=== PATIENT | female | born 1965 | race Caucasian/White ===

== ENCOUNTER 2018-01-30 11:09 | Day surgery (SDC) | payer MEDICARE, MEDICAID ==
[~2018-01-30] VITALS: Ht 157.5 cm; Wt 52.1 kg
[~2018-01-30 11:09] MED LIST: ALBU18HF2 INH; AMLO10TA PO; BENA40TA73 PO; CALC500T11 PO; CALC667T5 PO; CLON0.2T PO; CLON0.5T23 PO; FOLI0.8T19 PO; FURO80TA87 PO; HYDR-3965 PO; LABE300T2 PO; NIT5P TD; NITR0.4T51 SL; ONDA8TAB6 PO; SEVE800T8 PO
[2018-01-30] MEDS ORDERED: normal saline 1000ml 1,000 ML IV SCH (11:30)
[2018-01-30 11:33] VITALS: BP 147/91
[2018-01-30 12:54] LABS: BASOPHILS % (AUTO) 0.5 % (0-1); EOSINOPHILS # (AUTO) 0.3 X10'3 (0-0.9); EOSINOPHILS % (AUTO) 5.9 % (0-6); HEMATOCRIT 35.7 % (35.0-45.0); HEMOGLOBIN 11.8 g/dl (12.0-16.0); LYMPHOCYTES # (AUTO) 0.7 X10'3 (1.1-4.8); LYMPHOCYTES % (AUTO) 13.4 % (21-51); MEAN CORPUSCULAR HEMOGLOBIN 30.5 PG (27.0-31.0); MEAN CORPUSCULAR HGB CONC 33.1 % (33.0-36.5); MEAN CORPUSCULAR VOLUME 92.1 FL (78-98); MEAN PLATELET VOLUME 7.4 FL (7.4-10.4); MONOCYTES # (AUTO) 0.3 X10'3 (0-0.9); MONOCYTES % (AUTO) 6.2 % (2-12); NEUTROPHILS # (AUTO) 3.7 X10'3 (1.8-7.7); PLATELET COUNT 150 X10'3 (140-440); RED BLOOD COUNT 3.88 X10'6 (4.20-5.60); RED CELL DISTRIBUTION WIDTH 13.9 % (11.5-14.5)
[2018-01-30 13:05] LABS: ALBUMIN 3.5 G/DL (3.4-5.0); ANION GAP 14 (8-16); BLOOD UREA NITROGEN 53 MG/DL (7-18); BUN/CREATININE RATIO 4.6 (6.6-38.0); CALCIUM 8.7 MG/DL (8.5-10.1); CHLORIDE 95 MMOL/L (99-107); CREATININE 11.54 MG/DL (0.40-0.90); GLUCOSE 89 MG/DL (70-104); POTASSIUM 5.8 MMOL/L (3.5-5.1); SODIUM 136 MMOL/L (135-145); TOTAL CARBON DIOXIDE 27.2 MMOL/L (24-32); eGFR 3 ML/MIN
[2018-01-30] MEDS ORDERED: LIDOcaine 1%/PF 5ML 10 MG/ML VIAL SQ ONE (13:05)
[2018-01-30] MEDS ORDERED: midazolam 2 mg/2 ml injection IV PRN (13:05)
[2018-01-30] MEDS ORDERED: fentaNYL/PF 50MCG/1 ML 2ML syringe IV PRN (13:05)
[2018-01-30] MEDS ORDERED: LIDOcaine 1%/PF 5ML 10 MG/ML VIAL ONE (13:15)
[2018-01-30] MEDS ORDERED: iohexol 300mg/ml 100ml inj. ONE (13:15)
[2018-01-30] MEDS ORDERED: midazolam 2 mg/2 ml injection ONE ×2 (13:16→14:24)
[2018-01-30] MEDS ORDERED: fentaNYL/PF 50MCG/1 ML 2ML syringe ONE ×3 (13:16→14:24)
[2018-01-30] MEDS ORDERED: heparin 1,000 UNITS/NS 500ml 500 ML ONE (13:17)
[2018-01-30] MEDS ORDERED: tPA-cathflo 2 MG/2 ml IV flush ONE (13:17)
[2018-01-30] MEDS ORDERED: tPA-cathflo 2 MG/2 ml IV flush IVF ONE (13:30)
[2018-01-30] MEDS ORDERED: LIDOcaine 1% (10mg/ml) 2ml vial ONE (14:40)
[2018-01-30] MEDS ORDERED: heparin 1,000unit/ml 10ml vial 10 ML ONE (14:50)
[2018-01-30 15:50] VITALS: BP 135/92
[2018-01-30 16:00] VITALS: BP 131/59
[2018-01-30 16:17] VITALS: BP 169/85
== END 2018-01-30 16:35 | disposition home or self-care (01) ==
LOC: SSTAY O 11:09
PROVIDERS: ATTEND Radiology Diagnostic Radiology
DX: T82.858A Stenosis of other vascular prosthetic devices, implants and grafts, initial encounter (principal); Y83.2 Surgical operation with anastomosis, bypass or graft as the cause of abnormal reaction of the patient, or of later complication, without mention of misadventure at the time of the procedure; Y92.89 Other specified places as the place of occurrence of the external cause; I13.2 Hypertensive heart and chronic kidney disease with heart failure and with stage 5 chronic kidney disease, or end stage renal disease; I50.9 Heart failure, unspecified; N18.6 End stage renal disease; J45.998 Other asthma; F19.21 Other psychoactive substance dependence, in remission; M19.90 Unspecified osteoarthritis, unspecified site; F32.9 Major depressive disorder, single episode, unspecified; Z99.81 Dependence on supplemental oxygen; Z72.89 Other problems related to lifestyle; Z90.5 Acquired absence of kidney; Z85.41 Personal history of malignant neoplasm of cervix uteri; Z86.69 Personal history of other diseases of the nervous system and sense organs; Z86.74 Personal history of sudden cardiac arrest; Z95.828 Presence of other vascular implants and grafts; Z87.891 Personal history of nicotine dependence; Z99.2 Dependence on renal dialysis; Z88.0 Allergy status to penicillin; Z98.890 Other specified postprocedural states; Z79.899 Other long term (current) drug therapy; Z83.6 Family history of other diseases of the respiratory system; Z82.0 Family history of epilepsy and other diseases of the nervous system; Z82.3 Family history of stroke; Z80.9 Family history of malignant neoplasm, unspecified
CPT/HCPCS: 36415; 36558; 36905; 76937; 77001; 80048; 85025; 99152; 99153; A9270; C1725; C1750; C1757; C1769; C1894; J1644; J2001; J2250; J2997; J3010; J3490; J7030; Q9967; A4620

== ENCOUNTER 2018-01-30 17:20 | Emergency (ER) | payer MEDICARE, MEDICAID ==
[~2018-01-30] VITALS: Ht 157.5 cm; Wt 52.0 kg
[2018-01-30 19:40] LABS: BASOPHILS % (AUTO) 0.3 % (0-1); EOSINOPHILS # (AUTO) 0.3 X10'3 (0-0.9); EOSINOPHILS % (AUTO) 5.6 % (0-6); HEMATOCRIT 35.3 % (35.0-45.0); HEMOGLOBIN 11.7 g/dl (12.0-16.0); LYMPHOCYTES # (AUTO) 0.8 X10'3 (1.1-4.8); LYMPHOCYTES % (AUTO) 13.1 % (21-51); MEAN CORPUSCULAR HEMOGLOBIN 30.5 PG (27.0-31.0); MEAN CORPUSCULAR HGB CONC 33.2 % (33.0-36.5); MEAN CORPUSCULAR VOLUME 91.9 FL (78-98); MEAN PLATELET VOLUME 7.8 FL (7.4-10.4); MONOCYTES # (AUTO) 0.4 X10'3 (0-0.9); MONOCYTES % (AUTO) 6.6 % (2-12); NEUTROPHILS # (AUTO) 4.5 X10'3 (1.8-7.7); NEUTROPHILS % (AUTO) 74.4 % (42-75); PLATELET COUNT 141 X10'3 (140-440); RED BLOOD COUNT 3.84 X10'6 (4.20-5.60); RED CELL DISTRIBUTION WIDTH 14.1 % (11.5-14.5)
[2018-01-30 19:47] VITALS: BP 179/64
[2018-01-30 19:52] LABS: PARTIAL THROMBOPLASTIN TIME 31 SECONDS (22-32); PROTHROMBIN TIME 10.2 SECONDS (9.0-12.0)
[2018-01-30 19:53] LABS: ALANINE AMINOTRANSFERASE 23 U/L (12-78); ALBUMIN 3.8 G/DL (3.4-5.0); ALBUMIN/GLOBULIN RATIO 1.1 (1.1-1.5); ALKALINE PHOSPHATASE 141 IU/L (46-116); ANION GAP 16 (8-16); ASPARTATE AMINO TRANSFERASE 22 U/L (10-37); BILIRUBIN,TOTAL 0.8 MG/DL (0.1-1.0); BLOOD UREA NITROGEN 56 MG/DL (7-18); BUN/CREATININE RATIO 4.6 (6.6-38.0); CALCIUM 8.9 MG/DL (8.5-10.1); CHLORIDE 94 MMOL/L (99-107); CREATININE 12.22 MG/DL (0.40-0.90); GLUCOSE 86 MG/DL (70-104); POTASSIUM 5.3 MMOL/L (3.5-5.1); SODIUM 135 MMOL/L (135-145); TOTAL CARBON DIOXIDE 24.6 MMOL/L (24-32); TOTAL PROTEIN 7.3 G/DL (6.4-8.2); eGFR 3 ML/MIN
== END 2018-01-30 20:31 | disposition home or self-care (01) ==
LOC: ER 17:21
DX: T82.838A Hemorrhage due to vascular prosthetic devices, implants and grafts, initial encounter (principal); I25.2 Old myocardial infarction; I50.9 Heart failure, unspecified; E11.9 Type 2 diabetes mellitus without complications; Z88.0 Allergy status to penicillin; Z79.899 Other long term (current) drug therapy; Z87.891 Personal history of nicotine dependence
CPT/HCPCS: 36415; 71045; 80053; 85025; 85610; 85730; 86870; 86885; 86900; 86901; 86902; 86905; 99285

== ENCOUNTER 2018-03-30 08:45 | Inpatient (IN) | payer MEDICARE, MEDICAID ==
[~2018-03-30] VITALS: Ht 157.5 cm; Wt 51.4 kg
[2018-03-30] VITALS (13 sets, daily range): BP systolic 134–199; BP diastolic 59–91
[~2018-03-30 08:45] MED LIST changes: -BENA40TA73 PO; -CALC500T11 PO; -HYDR-3965 PO; -NIT5P TD; -NITR0.4T51 SL; -ONDA8TAB6 PO; -SEVE800T8 PO
--- NOTE | 2018-03-30 10:24 | NUR ---
received this patient from [facility] via ambulance, patients systolic 140 on 65 mcg of nitro. patient states she is without pain
[2018-03-30] MEDS ORDERED: ondansetron/PF 4mg/2ml inj IV PRN (10:30)
[2018-03-30] MEDS ORDERED: acetaminophen 325mg tablet PO PRN ×2 (10:30)
[2018-03-30] MEDS ORDERED: epoetin 20,000 units/ml inj IV ONE (10:35)
[2018-03-30] MEDS ORDERED: normal saline 1000ml 250 ML IV PRN (10:35)
[2018-03-30] MEDS ORDERED: heparin 1,000unit/ml 10ml vial 10 ML IV ONE (10:35)
[2018-03-30] MEDS ORDERED: LIDOcaine 1% (10mg/ml) 2ml vial SQ ONE (10:35)
[2018-03-30] MEDS ORDERED: albuterol 2.5 MG/3 ML nebule NEB PRN (11:20)
[2018-03-30 12:38] LABS: BASOPHILS % (AUTO) 0.3 % (0-1); EOSINOPHILS # (AUTO) 0.1 X10'3 (0-0.9); EOSINOPHILS % (AUTO) 1.7 % (0-6); HEMATOCRIT 24.9 % (35.0-45.0); LYMPHOCYTES # (AUTO) 0.3 X10'3 (1.1-4.8); LYMPHOCYTES % (AUTO) 7.3 % (21-51); MEAN CORPUSCULAR HEMOGLOBIN 30.4 PG (27.0-31.0); MEAN CORPUSCULAR HGB CONC 32.1 % (33.0-36.5); MEAN CORPUSCULAR VOLUME 94.8 FL (78-98); MEAN PLATELET VOLUME 8.8 FL (7.4-10.4); MONOCYTES # (AUTO) 0.4 X10'3 (0-0.9); MONOCYTES % (AUTO) 8.5 % (2-12); NEUTROPHILS # (AUTO) 3.9 X10'3 (1.8-7.7); NEUTROPHILS % (AUTO) 82.2 % (42-75); PLATELET COUNT 103 X10'3 (140-440); RED BLOOD COUNT 2.63 X10'6 (4.20-5.60); RED CELL DISTRIBUTION WIDTH 17.8 % (11.5-14.5); WHITE BLOOD COUNT 4.8 X10'3 (4.5-11.0)
[2018-03-30 12:52] LABS: ALANINE AMINOTRANSFERASE 12 U/L (12-78); ALBUMIN 2.7 G/DL (3.4-5.0); ALBUMIN/GLOBULIN RATIO 0.9 (1.1-1.5); ALKALINE PHOSPHATASE 84 IU/L (46-116); ANION GAP 14 (8-16); ASPARTATE AMINO TRANSFERASE 20 U/L (10-37); BILIRUBIN,TOTAL 0.6 MG/DL (0.1-1.0); BLOOD UREA NITROGEN 26 MG/DL (7-18); BUN/CREATININE RATIO 3.9 (6.6-38.0); CALCIUM 7.8 MG/DL (8.5-10.1); CHLORIDE 98 MMOL/L (99-107); CREATININE 6.64 MG/DL (0.40-0.90); GLUCOSE 96 MG/DL (70-104); SODIUM 137 MMOL/L (135-145); TOTAL CARBON DIOXIDE 25.2 MMOL/L (24-32); TOTAL PROTEIN 5.8 G/DL (6.4-8.2); eGFR 7 ML/MIN
[2018-03-30] MEDS ORDERED: clonazePAM 0.5mg tablet PO PRN (13:00)
[2018-03-30] MEDS: folic acid/vitamin B complex w/vitamin C 0.8mg tablet PO SCH (13:24)
[2018-03-30] MEDS: furosemide 40mg tablet PO SCH ×2 (13:29→20:44)
[2018-03-30] MEDS: labetalol 100mg tablet PO SCH ×2 (13:29→20:44)
[2018-03-30] MEDS ORDERED: nitroGLYCERIN-Tridil 50MG/D5W 250 ML IV PRN (17:05)
[2018-03-30] MEDS ORDERED: nitroGLYCERIN-Tridil 50MG/D5W 250 ML IV ONE (17:06)
[2018-03-30] MEDS: calcium acetate 667mg (PhosLO) capsule PO SCH ×2 (18:00→19:48)
[2018-03-30] MEDS: HYDROcodone/acetaminophen 5mg/325mg tablet PO PRN (18:08)
--- NOTE | 2018-03-30 18:25 | NUR ---
Patient in room CICU 2006. I have received report from Beata TAM and had the opportunity to ask questions and assume patient care.
--- NOTE | 2018-03-30 18:27 | NUR ---
Problems reprioritized. Patient report given, questions answered & plan of care reviewed with Sheridan TAM.
[2018-03-30] MEDS: cloNIDine 0.1 mg tablet PO SCH (19:48)
[2018-03-30] MEDS: famotidine 20mg tablet PO SCH (19:48)
[2018-03-30] MEDS: docusate sod 100mg capsule PO SCH (19:49)
[2018-03-30] MEDS: sennosides/docusate sodium tablet PO SCH (20:44)
--- NOTE | 2018-03-30 21:43 | NUR ---
Pt still hypertensive p/PM antihypertension meds and titrating nitro. Gabino notified, orders received.
[2018-03-30] MEDS: niCARDipine-NS 40mg/200ml IVPB 200 ML IV SCH (22:01)
--- NOTE | 2018-03-30 22:36 | NUR ---
Pt appears to be sleeping. Cardene started, titrating Nitro down as tolerated. Will continue to monitor.
[2018-03-31] VITALS (23 sets, daily range): BP systolic 133–175; BP diastolic 61–83
--- NOTE | 2018-03-31 03:57 | NUR ---
Pt appears to be sleeping, Nitro off, Cardene@5mg. BP@0358:142/70. Will continue to monitor.
[2018-03-31] MEDS: HYDROcodone/acetaminophen 5mg/325mg tablet PO PRN ×3 (04:30→22:04)
[2018-03-31] MEDS: niCARDipine-NS 40mg/200ml IVPB 200 ML IV SCH ×3 (04:31→18:59)
--- NOTE | 2018-03-31 06:27 | NUR ---
Problems reprioritized. Patient report given, questions answered & plan of care reviewed with Beata TAM.
[2018-03-31 06:47] LABS: BASOPHILS % (AUTO) 0.6 % (0-1); EOSINOPHILS # (AUTO) 0.1 X10'3 (0-0.9); EOSINOPHILS % (AUTO) 3.8 % (0-6); HEMATOCRIT 26.5 % (35.0-45.0); HEMOGLOBIN 8.5 g/dl (12.0-16.0); LYMPHOCYTES # (AUTO) 0.4 X10'3 (1.1-4.8); LYMPHOCYTES % (AUTO) 10.8 % (21-51); MEAN CORPUSCULAR HEMOGLOBIN 30.3 PG (27.0-31.0); MEAN CORPUSCULAR HGB CONC 31.9 % (33.0-36.5); MEAN PLATELET VOLUME 9.1 FL (7.4-10.4); MONOCYTES # (AUTO) 0.5 X10'3 (0-0.9); MONOCYTES % (AUTO) 12.4 % (2-12); NEUTROPHILS # (AUTO) 2.7 X10'3 (1.8-7.7); NEUTROPHILS % (AUTO) 72.4 % (42-75); PLATELET COUNT 114 X10'3 (140-440); RED BLOOD COUNT 2.79 X10'6 (4.20-5.60); RED CELL DISTRIBUTION WIDTH 17.4 % (11.5-14.5); WHITE BLOOD COUNT 3.7 X10'3 (4.5-11.0)
[2018-03-31 06:54] LABS: ALANINE AMINOTRANSFERASE 14 U/L (12-78); ALBUMIN 2.7 G/DL (3.4-5.0); ALBUMIN/GLOBULIN RATIO 0.8 (1.1-1.5); ALKALINE PHOSPHATASE 78 IU/L (46-116); ANION GAP 12 (8-16); ASPARTATE AMINO TRANSFERASE 20 U/L (10-37); BILIRUBIN,TOTAL 0.6 MG/DL (0.1-1.0); BLOOD UREA NITROGEN 11 MG/DL (7-18); BUN/CREATININE RATIO 2.8 (6.6-38.0); CALCIUM 8.2 MG/DL (8.5-10.1); CHLORIDE 99 MMOL/L (99-107); CREATININE 3.95 MG/DL (0.40-0.90); GLUCOSE 95 MG/DL (70-104); MAGNESIUM 1.9 MG/DL (1.5-2.4); PHOSPHORUS 2.6 MG/DL (2.3-4.5); POTASSIUM 3.6 MMOL/L (3.5-5.1); SODIUM 138 MMOL/L (135-145); TOTAL CARBON DIOXIDE 27.5 MMOL/L (24-32); TOTAL PROTEIN 6.1 G/DL (6.4-8.2); eGFR 12 ML/MIN
[2018-03-31] MEDS: folic acid/vitamin B complex w/vitamin C 0.8mg tablet PO SCH (07:50)
[2018-03-31] MEDS: famotidine 20mg tablet PO SCH ×2 (07:50→19:41)
[2018-03-31] MEDS: amLODIPine 5mg tablet PO SCH (07:50)
[2018-03-31] MEDS: cloNIDine 0.1 mg tablet PO SCH ×2 (07:50→19:41)
[2018-03-31] MEDS: furosemide 40mg tablet PO SCH ×3 (07:50→21:56)
[2018-03-31] MEDS: docusate sod 100mg capsule PO SCH ×2 (07:51→19:41)
[2018-03-31] MEDS: calcium acetate 667mg (PhosLO) capsule PO SCH ×3 (08:42→18:35)
[2018-03-31] MEDS: labetalol 100mg tablet PO SCH ×3 (08:42→21:56)
--- NOTE | 2018-03-31 18:16 | NUR ---
Problems reprioritized. Patient report given, questions answered & plan of care reviewed with Sheridan TAM.
--- NOTE | 2018-03-31 18:28 | NUR ---
Patient in room CICU 2006. I have received report from Beata TAM and had the opportunity to ask questions and assume patient care.
[2018-03-31] MEDS: sennosides/docusate sodium tablet PO SCH (21:56)
[2018-04-01] VITALS (24 sets, daily range): BP systolic 103–190; BP diastolic 60–94
--- NOTE | 2018-04-01 02:03 | NUR ---
Pt appears to be sleeping. Titrating Cardene down as tolerated,at 2mg. BP@0200:156/69. Will continue to monitor.
[2018-04-01 04:22] LABS: BASOPHILS % (AUTO) 0.7 % (0-1); EOSINOPHILS # (AUTO) 0.2 X10'3 (0-0.9); EOSINOPHILS % (AUTO) 5.3 % (0-6); HEMATOCRIT 27.9 % (35.0-45.0); HEMOGLOBIN 8.9 g/dl (12.0-16.0); LYMPHOCYTES # (AUTO) 0.5 X10'3 (1.1-4.8); LYMPHOCYTES % (AUTO) 14.1 % (21-51); MEAN CORPUSCULAR HEMOGLOBIN 30.2 PG (27.0-31.0); MEAN CORPUSCULAR VOLUME 94.2 FL (78-98); MEAN PLATELET VOLUME 8.9 FL (7.4-10.4); MONOCYTES # (AUTO) 0.4 X10'3 (0-0.9); MONOCYTES % (AUTO) 10.6 % (2-12); NEUTROPHILS # (AUTO) 2.4 X10'3 (1.8-7.7); NEUTROPHILS % (AUTO) 69.3 % (42-75); PLATELET COUNT 117 X10'3 (140-440); RED BLOOD COUNT 2.96 X10'6 (4.20-5.60); RED CELL DISTRIBUTION WIDTH 17.6 % (11.5-14.5); WHITE BLOOD COUNT 3.5 X10'3 (4.5-11.0)
[2018-04-01] MEDS: HYDROcodone/acetaminophen 5mg/325mg tablet PO PRN ×3 (04:25→21:33)
[2018-04-01 04:37] LABS: ALANINE AMINOTRANSFERASE 12 U/L (12-78); ALBUMIN 2.7 G/DL (3.4-5.0); ALBUMIN/GLOBULIN RATIO 0.8 (1.1-1.5); ALKALINE PHOSPHATASE 88 IU/L (46-116); ANION GAP 12 (8-16); ASPARTATE AMINO TRANSFERASE 18 U/L (10-37); BILIRUBIN,TOTAL 0.6 MG/DL (0.1-1.0); BLOOD UREA NITROGEN 22 MG/DL (7-18); BUN/CREATININE RATIO 3.4 (6.6-38.0); CALCIUM 8.9 MG/DL (8.5-10.1); CHLORIDE 99 MMOL/L (99-107); CREATININE 6.45 MG/DL (0.40-0.90); GLUCOSE 103 MG/DL (70-104); POTASSIUM 3.7 MMOL/L (3.5-5.1); SODIUM 138 MMOL/L (135-145); TOTAL CARBON DIOXIDE 27.3 MMOL/L (24-32); TOTAL PROTEIN 6.1 G/DL (6.4-8.2); eGFR 7 ML/MIN
[2018-04-01] MEDS: niCARDipine-NS 40mg/200ml IVPB 200 ML IV SCH ×3 (05:45→21:45)
--- NOTE | 2018-04-01 06:22 | NUR ---
Problems reprioritized. Patient report given, questions answered & plan of care reviewed with oncoming shift.
--- NOTE | 2018-04-01 06:22 | NUR ---
Patient in room CICU 2006. I have received report from ANEL Swartz and had the opportunity to ask questions and assume patient care.
[2018-04-01] MEDS: furosemide 40mg tablet PO SCH ×3 (07:38→21:30)
[2018-04-01] MEDS: calcium acetate 667mg (PhosLO) capsule PO SCH ×3 (07:38→17:00)
[2018-04-01] MEDS: folic acid/vitamin B complex w/vitamin C 0.8mg tablet PO SCH (07:38)
[2018-04-01] MEDS: labetalol 100mg tablet PO SCH ×3 (07:39→21:30)
[2018-04-01] MEDS: docusate sod 100mg capsule PO SCH ×2 (07:39→20:03)
[2018-04-01] MEDS: cloNIDine 0.1 mg tablet PO SCH ×2 (07:39→20:04)
[2018-04-01] MEDS: amLODIPine 5mg tablet PO SCH (07:39)
[2018-04-01] MEDS: famotidine 20mg tablet PO SCH ×2 (07:39→20:03)
[2018-04-01] MEDS ORDERED: lactulose 20gm/30ml cup PO PRN (10:30)
[2018-04-01] MEDS: NIFEdipine XL 30mg tablet PO SCH ×2 (12:19→20:04)
--- NOTE | 2018-04-01 18:20 | NUR ---
Patient in room CICU 2006. I have received report from Raymond TAM and had the opportunity to ask questions and assume patient care.
[2018-04-01] MEDS: sennosides/docusate sodium tablet PO SCH (21:30)
[2018-04-02] VITALS (24 sets, daily range): BP systolic 107–181; BP diastolic 63–99
[2018-04-02] MEDS: niCARDipine-NS 40mg/200ml IVPB 200 ML IV SCH ×3 (05:45→21:45)
--- NOTE | 2018-04-02 06:08 | NUR ---
These were 0600 vitals signs. Wrong time was saved. Addendum: 04/02/18 at 0609 by Zoila Gu RN Amended: Links added.
--- NOTE | 2018-04-02 06:19 | NUR ---
Problems reprioritized. Patient report given, questions answered & plan of care reviewed with Raymond TAM.
--- NOTE | 2018-04-02 06:21 | NUR ---
Patient in room CICU 2006. I have received report from ANEL Cummings and had the opportunity to ask questions and assume patient care.
[2018-04-02] MEDS: calcium acetate 667mg (PhosLO) capsule PO SCH ×3 (07:16→17:11)
[2018-04-02] MEDS: cloNIDine 0.1 mg tablet PO SCH ×2 (07:16→19:41)
[2018-04-02] MEDS: folic acid/vitamin B complex w/vitamin C 0.8mg tablet PO SCH (07:16)
[2018-04-02] MEDS: famotidine 20mg tablet PO SCH ×2 (07:16→19:41)
[2018-04-02] MEDS: labetalol 100mg tablet PO SCH ×3 (07:16→21:12)
[2018-04-02] MEDS: docusate sod 100mg capsule PO SCH ×2 (07:16→19:41)
[2018-04-02] MEDS: furosemide 40mg tablet PO SCH (07:16)
[2018-04-02] MEDS: NIFEdipine XL 30mg tablet PO SCH ×2 (07:16→19:41)
[2018-04-02] MEDS ORDERED: normal saline 1000ml 250 ML IV PRN (08:00)
[2018-04-02] MEDS ORDERED: heparin 1,000unit/ml 10ml vial 10 ML IV ONE (08:00)
[2018-04-02] MEDS ORDERED: LIDOcaine 1% (10mg/ml) 2ml vial SQ ONE (08:00)
[2018-04-02] MEDS ORDERED: epoetin 20,000 units/ml inj IV ONE (08:00)
[2018-04-02 08:53] LABS: BASOPHILS % (AUTO) 0.6 % (0-1); EOSINOPHILS # (AUTO) 0.2 X10'3 (0-0.9); EOSINOPHILS % (AUTO) 5.8 % (0-6); HEMATOCRIT 28.1 % (35.0-45.0); HEMOGLOBIN 9.1 g/dl (12.0-16.0); LYMPHOCYTES # (AUTO) 0.6 X10'3 (1.1-4.8); LYMPHOCYTES % (AUTO) 17.4 % (21-51); MEAN CORPUSCULAR HEMOGLOBIN 30.5 PG (27.0-31.0); MEAN CORPUSCULAR HGB CONC 32.5 % (33.0-36.5); MEAN CORPUSCULAR VOLUME 93.8 FL (78-98); MEAN PLATELET VOLUME 9.4 FL (7.4-10.4); MONOCYTES # (AUTO) 0.4 X10'3 (0-0.9); NEUTROPHILS # (AUTO) 2.4 X10'3 (1.8-7.7); NEUTROPHILS % (AUTO) 66.2 % (42-75); PLATELET COUNT 125 X10'3 (140-440); RED CELL DISTRIBUTION WIDTH 17.3 % (11.5-14.5); WHITE BLOOD COUNT 3.6 X10'3 (4.5-11.0)
[2018-04-02 09:15] LABS: ALBUMIN 2.6 G/DL (3.4-5.0); ALBUMIN/GLOBULIN RATIO 0.8 (1.1-1.5); ALKALINE PHOSPHATASE 74 IU/L (46-116); ANION GAP 12 (8-16); ASPARTATE AMINO TRANSFERASE 19 U/L (10-37); BILIRUBIN,TOTAL 0.6 MG/DL (0.1-1.0); BLOOD UREA NITROGEN 34 MG/DL (7-18); BUN/CREATININE RATIO 3.9 (6.6-38.0); CALCIUM 9.6 MG/DL (8.5-10.1); CHLORIDE 98 MMOL/L (99-107); CREATININE 8.79 MG/DL (0.40-0.90); GLUCOSE 107 MG/DL (70-104); MAGNESIUM 2.1 MG/DL (1.5-2.4); POTASSIUM 4.1 MMOL/L (3.5-5.1); SODIUM 136 MMOL/L (135-145); TOTAL CARBON DIOXIDE 25.7 MMOL/L (24-32); eGFR 5 ML/MIN
[2018-04-02 09:27] LABS: ALANINE AMINOTRANSFERASE < 6 U/L (12-78)
--- NOTE | 2018-04-02 11:40 | NUR ---
Morning rounds completed - verbal okay given by Dr Zuñiga to hold Cardene gtt at this time. New verbal orders given and placed. Will monitor.
[2018-04-02] MEDS ORDERED: minoxidil 2.5mg tablet PO PRN (14:00)
[2018-04-02] MEDS: HYDROcodone/acetaminophen 5mg/325mg tablet PO PRN ×2 (15:19→21:13)
--- NOTE | 2018-04-02 18:30 | NUR ---
Patient in room CICU 2006. I have received report from ANEL Andrade and had the opportunity to ask questions and assume patient care.
[2018-04-02] MEDS: lisinopril 20mg tablet PO SCH (19:41)
[2018-04-02] MEDS: sennosides/docusate sodium tablet PO SCH (21:00)
[2018-04-03] VITALS (13 sets, daily range): BP systolic 120–182; BP diastolic 68–102
[2018-04-03] MEDS: niCARDipine-NS 40mg/200ml IVPB 200 ML IV SCH (05:45)
--- NOTE | 2018-04-03 06:20 | NUR ---
Problems reprioritized. Patient report given, questions answered & plan of care reviewed with ANEL Frances.
--- NOTE | 2018-04-03 06:49 | NUR ---
Patient in room CICU 2007. I have received report from Arlene TAM and had the opportunity to ask questions and assume patient care.
[2018-04-03] MEDS: cloNIDine 0.1 mg tablet PO SCH (07:47)
[2018-04-03] MEDS: calcium acetate 667mg (PhosLO) capsule PO SCH ×2 (07:47→12:35)
[2018-04-03] MEDS: folic acid/vitamin B complex w/vitamin C 0.8mg tablet PO SCH (07:47)
[2018-04-03] MEDS: NIFEdipine XL 30mg tablet PO SCH (07:47)
[2018-04-03] MEDS: lisinopril 20mg tablet PO SCH (07:48)
[2018-04-03] MEDS: famotidine 20mg tablet PO SCH (07:48)
[2018-04-03] MEDS: labetalol 100mg tablet PO SCH ×2 (07:49→12:34)
[2018-04-03] MEDS: docusate sod 100mg capsule PO SCH (08:00)
[2018-04-03] MEDS ORDERED: losartan 50mg tablet PO SCH (08:00)
--- NOTE | 2018-04-03 09:02 | NUR ---
Patient in room CICU 2006. I have received report from ANEL Cota and had the opportunity to ask questions and assume patient care.
--- NOTE | 2018-04-03 09:03 | NUR ---
Problems reprioritized. Patient report given, questions answered & plan of care reviewed with STOVE CARRIAGE OPERATOR, PATIENT BEING TRANSFERRED WITH ALL BELONGINGS TO [facility] [place].
[2018-04-03] MEDS ORDERED: niCARDipine-NS 40mg/200ml IVPB 200 ML IV SCH (11:10)
[2018-04-03] MEDS: HYDROcodone/acetaminophen 5mg/325mg tablet PO PRN ×2 (11:38→17:14)
[2018-04-03] MEDS ORDERED: LISI-600 PO (14:11)
[2018-04-03] MEDS ORDERED: MINO2.5T19 PO (14:11)
[2018-04-03] MEDS ORDERED: LOSA50TA64 PO (14:11)
--- NOTE | 2018-04-03 14:30 | NUR ---
PER DR. CARL, WILL D/C NICARDIPINE DRIP @ 25MLS/HR.
--- NOTE | 2018-04-03 18:31 | NUR ---
Problems reprioritized. Patient report given, questions answered & plan of care reviewed with ANEL MULTANI.
--- NOTE | 2018-04-03 18:45 | NUR ---
Patient discharged from unit. Tele monitor removed, and IV catheter, tip intact. Gauze and tape applied, no bleeding. Patient education provided, including patient discharge packet. All questions answered. Patient alert, oriented, and comfortable. Spouse at bedside. Patient left with spouse to private car.
== END 2018-04-03 19:00 | disposition home or self-care (01) | DRG 682 ==
LOC: CICU 2S 08:45 → PCU 3S 04-03 10:00
PROVIDERS: ATTEND Internal Medicine Critical Care Medicine
PROC: 5A09357 Assistance with Respiratory Ventilation, Less than 24 Consecutive Hours, Continuous Positive Airway Pressure (ICD-10-PCS; principal; 2018-03-30)
PROC: 5A1D70Z Performance of Urinary Filtration, Intermittent, Less than 6 Hours Per Day (ICD-10-PCS; 2018-03-30)
PROC: 5A1D70Z Performance of Urinary Filtration, Intermittent, Less than 6 Hours Per Day (ICD-10-PCS; 2018-04-02)
DX: I12.0 Hypertensive chronic kidney disease with stage 5 chronic kidney disease or end stage renal disease (principal); N18.6 End stage renal disease; F17.200 Nicotine dependence, unspecified, uncomplicated; I73.9 Peripheral vascular disease, unspecified; J44.9 Chronic obstructive pulmonary disease, unspecified; R34 Anuria and oliguria; Z99.2 Dependence on renal dialysis; Z88.0 Allergy status to penicillin; Z80.9 Family history of malignant neoplasm, unspecified
CPT/HCPCS: 36415; 80053; 83735; 84100; 84244; 85025; 90935; 94660; 94760; G0257; G0378; J0885; J1644; J2150; J3490

== ENCOUNTER 2018-06-13 07:58 | Day surgery (SDC) | payer MEDICARE, MEDICAID ==
[~2018-06-13] VITALS: Ht 157.5 cm; Wt 47.5 kg
[~2018-06-13 07:58] MED LIST changes: -AMLO10TA PO; -FURO80TA87 PO; +LISI-600 PO; +LOSA50TA64 PO; +MINO2.5T19 PO
[2018-06-13] MEDS ORDERED: normal saline 1000ml 1,000 ML IV SCH (08:15)
[2018-06-13] MEDS ORDERED: LISI-600 PO (08:20)
[2018-06-13] MEDS ORDERED: MINO2.5T19 PO (08:26)
[2018-06-13] MEDS ORDERED: ALBU18HF2 INH (08:28)
[2018-06-13 08:56] LABS: BASOPHILS # (AUTO) 0.1 X10'3 (0-0.2); BASOPHILS % (AUTO) 0.8 % (0-1); EOSINOPHILS # (AUTO) 0.2 X10'3 (0-0.9); EOSINOPHILS % (AUTO) 3.5 % (0-6); HEMATOCRIT 40.8 % (35.0-45.0); HEMOGLOBIN 13.6 g/dl (12.0-16.0); LYMPHOCYTES # (AUTO) 0.6 X10'3 (1.1-4.8); LYMPHOCYTES % (AUTO) 9.6 % (21-51); MEAN CORPUSCULAR HGB CONC 33.4 g/dL (33.0-36.5); MEAN CORPUSCULAR VOLUME 89.6 FL (78-98); MEAN PLATELET VOLUME 8.7 FL (7.4-10.4); MONOCYTES # (AUTO) 0.5 X10'3 (0-0.9); MONOCYTES % (AUTO) 7.1 % (2-12); NEUTROPHILS # (AUTO) 5.3 X10'3 (1.8-7.7); PLATELET COUNT 99 X10'3 (140-440); RED BLOOD COUNT 4.56 X10'6 (4.20-5.60); RED CELL DISTRIBUTION WIDTH 15.6 % (11.5-14.5); WHITE BLOOD COUNT 6.7 X10'3 (4.5-11.0)
[2018-06-13 09:00] VITALS: BP 168/86
[2018-06-13 09:08] LABS: ALBUMIN 4.1 G/DL (3.4-5.0); ANION GAP 12 (8-16); BLOOD UREA NITROGEN 50 MG/DL (7-18); BUN/CREATININE RATIO 5.2 (6.6-38.0); CALCIUM 9.5 MG/DL (8.5-10.1); CHLORIDE 95 MMOL/L (99-107); CREATININE 9.53 MG/DL (0.40-0.90); GLUCOSE 91 MG/DL (70-104); POTASSIUM 5.5 MMOL/L (3.5-5.1); SODIUM 135 MMOL/L (135-145); TOTAL CARBON DIOXIDE 28.3 MMOL/L (24-32); eGFR 4 ML/MIN
[2018-06-13] MEDS ORDERED: fentaNYL/PF 50MCG/1 ML 2ML syringe IV PRN (10:05)
[2018-06-13] MEDS ORDERED: midazolam 2 mg/2 ml injection IV PRN (10:05)
[2018-06-13] MEDS ORDERED: LIDOcaine 1%/PF 5ML 10 MG/ML VIAL SQ ONE (10:05)
[2018-06-13] MEDS ORDERED: heparin 1,000 UNITS/NS 500ml 500 ML ICATH ONE (10:05)
[2018-06-13] MEDS ORDERED: iohexol 300mg/ml 100ml inj. ONE (10:06)
[2018-06-13] MEDS ORDERED: LIDOcaine 1%/PF 5ML 10 MG/ML VIAL ONE (10:06)
[2018-06-13] MEDS ORDERED: heparin 1,000 UNITS/NS 500ml 500 ML ONE (10:07)
[2018-06-13] MEDS ORDERED: fentaNYL/PF 50MCG/1 ML 2ML syringe ONE ×2 (10:07→10:46)
[2018-06-13] MEDS ORDERED: midazolam 2 mg/2 ml injection ONE (10:07)
[2018-06-13] MEDS ORDERED: tPA-cathflo 2 MG/2 ml IV flush ONE (10:34)
[2018-06-13 11:35] VITALS: BP 144/94
[2018-06-13 11:50] VITALS: BP 169/93
[2018-06-13 12:05] VITALS: BP 174/107
[2018-06-13 12:15] VITALS: BP 158/109
== END 2018-06-13 12:20 | disposition home or self-care (01) ==
LOC: SSTAY O 07:58
PROVIDERS: ATTEND Radiology Diagnostic Radiology
DX: T82.868A Thrombosis due to vascular prosthetic devices, implants and grafts, initial encounter (principal); Y83.9 Surgical procedure, unspecified as the cause of abnormal reaction of the patient, or of later complication, without mention of misadventure at the time of the procedure; Y92.9 Unspecified place or not applicable; I10 Essential (primary) hypertension; Z87.891 Personal history of nicotine dependence; Z88.0 Allergy status to penicillin; Z79.899 Other long term (current) drug therapy; Z98.890 Other specified postprocedural states
CPT/HCPCS: 36415; 36905; 76937; 80048; 85025; 99152; 99153; J1644; J2001; J2250; J2997; J3010; Q9967; C1725; C1757; C1769; C1894

== ENCOUNTER 2024-10-27 21:44 | Inpatient (IN) | payer MEDICARE, MEDICAID ==
[~2024-10-27] VITALS: Ht 160 cm; Wt 43.2 kg
[~2024-10-27 21:44] MED LIST changes: -CALC667T5 PO; +CALC667T6 PO; -FOLI0.8T19 PO; +FOLI0.8T52 PO; -LABE300T2 PO; +LABE300T4 PO; -LISI-600 PO; +LISI20TA28 PO; -LOSA50TA64 PO
[2024-10-27] MEDS ORDERED: heparin 10,000 units/1 ML INJ IV PRN (21:50)
[2024-10-27] MEDS ORDERED: heparin 25,000 UNIT/250ml bag 250 ML IV PRN (21:50)
[2024-10-27 22:07] LABS: MEAN PLATELET VOLUME 10.1 FL (7.4-10.4); RED CELL DISTRIBUTION WIDTH 17.0 % (11.5-14.5)
--- NOTE | 2024-10-27 22:20 | RADIOLOGY REPORT ---
CLINICAL HISTORY: CP TECHNIQUE: leland-posterior leland-posterior view of the chest was obtained view of the chest was ob tained. WID: COMPARISON: None FINDINGS: Lungs: Streak right lower lobe opacities bilaterally. The bronchi air thickened. Cardiomediastinal silhouette: normal in size. Calcification of the aortic arch. Bones: No acute osseous abnormality. Imaged upper Abdomen: unremarkable. IMPRESSION: 1. Streaky bilateral lower lobe opacities favored to represent atelectasis, though infection is not e xcluded. 2. Mild bronchial wall thickening which can be seen in the setting of chronic large airways disease o r viral bronchitis
[2024-10-27] MEDS: heparin 25,000 UNIT/250ml bag 250 ML IV PRN (22:31)
[2024-10-27 22:53] LABS: CREATININE 6.78 MG/DL (0.40-0.90); TOTAL CARBON DIOXIDE 26.4 MMOL/L (24-32); eCRCL 6 ML/MIN; eGFR 6 ML/MIN
[2024-10-27] MEDS: MESSAGE TO NURSING IV ONE (23:03)
--- NOTE | 2024-10-27 23:21 | Physician Documentation ---
History of Present Illness ~ Chief Complaint: Chest Pain Stated Complaint: SEE CHEIF COMPLAINT Time Seen by MD: 23:03 Primary Medical Doctor: BENNY BURTON Patient presents to the emergency room as a transfer from [facility] for NSTEMI. Patient has been having intermittent chest pain this past week. EKGs reassuring at sending facility however did note that she had elevated troponins and with a history of chest pain heparin was initiated. She had an echocardiogram today which showed some abnormalities and this is why she was directed to the emergency room in addition to her chest pain. Patient is complaining of total body pain with history of chronic pain and lupus. Medication Reconciliation Allergies: Coded Allergies: Penicillins (Verified Allergy, Mild, 12/04/13) mom told her she had one as a child. Scheduled Albuterol Sulfate (Ventolin Hfa), 2 PUFFS INH Q4HPRN, (Reported) Calcium Acetate (PhosLo tablet), 3 TAB PO EACH MEAL, (Reported) Clonidine Hcl (Clonidine Hcl), 0.2 MG PO BID, (Reported) Folic Acid/Vitamin B Comp W-C (Nephro-Luciano Tablet), 1 TAB PO AM, (Reported) Labetalol Hcl (Labetalol Hcl), 1 TAB PO TID, (Reported) Lisinopril (Lisinopril), 1 TAB PO DAILY, (Reported) Minoxidil* (Loniten*), 2 TAB PO BID, (Reported) Scheduled PRN Clonazepam (Clonazepam), 1 TAB PO BID PRN for anxiety, (Reported) Past Medical History Past Medical History: Seizures, Congestive Heart Failure, Myocardial Infarction, Asthma, Dialysis, Diabetes, *CANCER* Past Surgical History: other Patient History: (Cancer) Malignant carcinoid tumor MOTHER, , Age: 60, Cause: Colon cancer, Onset:50's - 60 Drug Use: none Lives In: Home Review of Systems ROS All review of systems negative except as per HPI Physical Exam Vital Signs: Temperature: 97.8, Source: Oral, Heart Rate: 72, Respiratory Rate: 16, BP: 160/85, Pulse Oximetry: 99, Weight: 43.500 Physical Exam General: Patient is awake, alert, oriented x4 in no acute distress Head: Normocephalic and atraumatic. Eyes: Conjunctival normal. EOMI. PERRL. ENT: Mucous membranes moist. Neck: Supple, trachea is midline. Chest: Clear to auscultation bilaterally without rales, rhonchi, or wheezes. There is no accessory muscle use or retractions. Cardiac: RRR without murmurs, gallops, or rubs. Abd: Soft, nondistended, nontender, with normoactive bowel sounds. No guarding, rebound, or rigidity. Extremities: Normal strength. Normal range of motion. No deformities or edema. No calf tenderness to palpation Progress Results/Orders Results/Orders Orders - JITENDRA JI MD Chest,Single View (10/27/24 22:07) Monitor (10/27/24 21:46) Saline Lock (10/27/24:46) Oxygen (10/27/24:46) Electrocardiogram (10/27/24:46) Hs Troponin I W Calculations (10/27/24 23:46) Hs Troponin I W Calculations (10/28/24 00:46) Heparin 10,000 Unit/Ml 1ml (Heparin 10,0 (10/27/24 21:50) Cbc/Diff (10/28/24 03:00) Cbc/Diff (10/29/24 03:00) Cbc/Diff (10/30/24 03:00) Cbc/Diff (10/31/24 03:00) Cbc/Diff (11/01/24 03:00) Heparin 25,000 Unit/250ml Bag (Heparin 2 (10/27/24 22:10) Cardiac Ptt (10/28/24 04:30) Morphine 4mg/Ml Inj. (Morphine Inj.) (10/27/24 23:35) Completed Orders - JITENDRA JI MD Chest,Single View (10/27/24 22:07) Cbc/Diff (10/27/24 21:46) Heparin 25,000 Unit/250ml Bag (Heparin 2 (10/27/24 21:50) Message To Nursing (10/27/24 22:15) Medications Received in ER Medications (Trade) Dose Ordered Sig/Montez Route PRN Reason Start Time Stop Time Status Last Admin Dose Admin Heparin Sodium/ Dextrose 250 ml @ 5 mls/hr Q48H PRN IV TO MAINTAIN PTT WITHIN RANGE 10/27/24 22:10 10/27/24 22:31 5 MLS/HR Non-Formulary Medication 1 each ONCE ONCE IV 7/22/25 22:15 10/27/24 22:16 DC 10/27/24 23:03 1 EACH Vital Signs 10/27/24 10/27/24 21:46 22:02 Temp 97.8 Pulse 60 72 Resp 19 16 B/P (MAP) 160/85 Pulse Ox 99 99 Laboratory Tests Test 10/27/24 21:56 10/27/24 22:18 White Blood Count 12.4 H Red Blood Count 4.48 Hemoglobin 13.7 Hematocrit 42.0 Mean Corpuscular Volume 93.6 Mean Corpuscular Hemoglobin 30.5 Mean Corpuscular Hemoglobin Concent 32.6 L Red Cell Distribution Width 17.0 H Platelet Count 129 L Mean Platelet Volume 10.1 Neutrophils (%) (Auto) 81.9 H Lymphocytes (%) (Auto) 10.4 L Monocytes (%) (Auto) 6.7 Eosinophils (%) (Auto) 0.2 Basophils (%) (Auto) 0.8 Neutrophils # (Auto) 10.2 H Lymphocytes # (Auto) 1.3 Monocytes # (Auto) 0.8 Eosinophils # (Auto) 0.0 Basophils # (Auto) 0.1 CBC Comment Coagulation Comments Chemistry Comments APTT (Heparin Protocol) 36 L Sodium Level 132 L Potassium Level 6.5 *H Chloride Level 92 L Carbon Dioxide Level 26.4 Anion Gap 14 Blood Urea Nitrogen 59 H Creatinine 6.78 H Estimated GFR/1.73 m2 6 BUN/Creatinine Ratio 8.7 L Glucose Level 116 H Calcium Level 8.6 Troponin I High Sensitivity 1235 *H Albumin 3.4 EKG/XRAY/CT/US/VASC/MRI EKG : Additional Comment EKG interpreted by myself shows time of 04/27/2045, rate 71, sinus rhythm, normal axis, nonspecific ST-T changes, diffuse T-wave inversion, prolonged QT. Chest X-Ray : Additional Comments Exam: CHEST,SINGLE VIEW CLINICAL HISTORY: CP TECHNIQUE: leland-posterior leland-posterior view of the chest was obtained view of the chest was obtained. WID: COMPARISON: None FINDINGS: Lungs: Streak right lower lobe opacities bilaterally. The bronchi air thickened. Cardiomediastinal silhouette: normal in size. Calcification of the aortic arch. Bones: No acute osseous abnormality. Imaged upper Abdomen: unremarkable. IMPRESSION: 1. Streaky bilateral lower lobe opacities favored to represent atelectasis, though infection is not excluded. 2. Mild bronchial wall thickening which can be seen in the setting of chronic large airways disease or viral bronchitis Medical Decision Making Findings Patient presents to the emergency room as transfer from [facility] for NSTEMI. She is on heparin drip. We will be consulting with Cardiology for additional investigations/interventions. Differential Dx:Considerations: Include: angina, aortic dissection, chest wall pain, cholelithiasis, CHF, costochondritis, esophageal reflux/spasm, gastritis, herpes zoster, myocardial infarction, pericarditis, pleuritis, pancreatitis, pneumonia, pneumothorax, pulmonary embolus, other Departure Admitted to Inpatient Unit: yes, to hospitalist Impression: Primary Impression: NSTEMI (non-ST elevated myocardial infarction) Condition: Guarded Referrals: NO PRIMARY CARE PROVIDER (PCP) Critical Care Note Total Time (mins): 45 Critical Care Note The very real possibility of a deterioration of this patient's condition required the highest level of my preparedness for sudden, emergent intervention. I provided critical care services, which included medication orders, frequent reevaluations of the patient's condition and response to treatment, ordering and reviewing test results, and discussing the case with various consultants. Excludes time spent performing separately billable procedures. The critical care time associated with the care of the patient was 45 minutes not counting procedures Signature Scribe Signature: No scribe Attestation: The note accurately reflects work and decisions made by me.Jitendra Ji MD 10/27/24 23:35 JITENDRA JI MD Oct 27, 2024 23:21
[2024-10-27] MEDS: morphine 4 MG/ML inj SYRINge IV ONE (23:47)
[2024-10-28] VITALS (18 sets, daily range): BP systolic 115–177; BP diastolic 65–99; PULSE 59–78; RESP 12–21; TEMP 96.5–98.4; O2SAT 92–100
[2024-10-28] MEDS ORDERED: HYDR200T73 PO (00:03)
[2024-10-28] MEDS ORDERED: SODI10PO (00:03)
[2024-10-28] MEDS ORDERED: HYDR50TA46 PO (00:03)
[2024-10-28] MEDS ORDERED: PROM12.574 RC (00:03)
[2024-10-28] MEDS ORDERED: LOSA50TA64 PO (00:03)
[2024-10-28] MEDS ORDERED: CLON-567 PO (00:03)
[2024-10-28] MEDS ORDERED: METO-395 PO (00:03)
[2024-10-28] MEDS ORDERED: ALBU18HF2 (00:03)
[2024-10-28 00:04] LABS: PRO BRAIN NATRIURETIC PEPTIDE > 30000 PG/ML (0-125)
[2024-10-28] MEDS ORDERED: ondansetron/PF 4mg/2ml inj IV PRN (00:10)
[2024-10-28] MEDS ORDERED: potassium Cl 40MEQ/1/2NS 520ml 520 ML IV PRN (00:10)
[2024-10-28] MEDS ORDERED: potassium Cl 20 mEq SR tablet PO PRN ×2 (00:10)
[2024-10-28] MEDS ORDERED: magnesium sulf-water 2g/50mL 50 ML IV PRN (00:10)
[2024-10-28] MEDS ORDERED: mag hydrox/Alum hydrox/simeth 30ml oral suspension PO PRN (00:10)
[2024-10-28] MEDS ORDERED: magnesium Cl slow-release 64mg tablet PO PRN (00:10)
[2024-10-28] MEDS ORDERED: magnesium hydroxide 30ml (MOM) UD suspension PO PRN (00:10)
[2024-10-28] MEDS ORDERED: magnesium sulf-water 4G/100mL 100 ML IV PRN (00:10)
--- NOTE | 2024-10-28 03:20 | HISTORY AND PHYSICAL-Residence ---
History & Physical Providers to CC Resident Creating Document: SALVATORE COLE, RES CC: AISHWARYA WEBB MD ~ History of Present Illness Primary Medical Doctor: BENNY Reason for Admit\Complaint: Chest pain and shortness of breath History of Present Illness A 59-year-old female with past medical history of ESRD on dialysis, HTN, CHF presented to the ED in view of worsening shortness of breaths and chest pressure over the last two weeks. Patient states that she had chest pain that was substernal in location unable to describe the type of pain and radiation but was able to see the severity is 12/10. Patient denies dizziness, palpitations. P atient endorses orthopnea, PND. Allergies: Coded Allergies: Penicillins (Verified Allergy, Mild, 12/04/13) mom told her she had one as a child. Home Medications Home Medications Active Reported Lokelma (Sodium Zirconium Cyclosilicate) 10 Gram Powd.pack Hydralazine HCl 50 Mg Tablet 1 Tab PO TID Losartan Potassium 50 Mg Tablet 1 Tab PO BID Metoprolol Succinate 25 Mg Tab.sr.24h 1 Tab PO DAILY Plaquenil* (Hydroxychloroquine Sulfate) 200 Mg Tablet 1 Tab PO DAILY Ventolin Hfa (Albuterol Sulfate) 90 Mcg Hfa.aer.ad Clonazepam 0.5 Mg Tablet 1 Tab PO BID PRN Promethazine HCl 12.5 Mg Supp.rect 1 Supp RC Q4H PRN Loniten* (Minoxidil) 2.5 Mg Tablet 2 Tab PO BID Lisinopril 20 Mg Tablet 1 Tab PO DAILY Labetalol Hcl 300 Mg Tablet 1 Tab PO TID PhosLo tablet (Calcium Acetate) 667 Mg Tablet 3 Tab PO EACH MEAL Nephro-Luciano Tablet (Folic Acid/Vitamin B Comp W-C) 0.8 Mg Tablet 1 Tab PO AM Clonidine Hcl 0.2 Mg Tablet 0.2 Mg PO BID Past Medical History Past Medical History HTN CHF ESRD on hemodialysis Adjustment disorder with depressive mood Lupus COPD PAD status post graft and stent placed in the abdominal aorta and the lower extremities Rheumatoid arthritis Carpal tunnel syndrome COPD Past Surgical History Surgical History Comment Right nephrectomy secondary to multiple stones Left kidney defect with repair Carpal tunnel surgery Abortions and miscarriages Family History Family History: (Cancer) Malignant carcinoid tumor MOTHER, , Age: 60, Cause: Colon cancer, Onset:50's - 60 FH: alcohol abuse FATHER, , Age: 70, Cause: Lung cancer FH: stroke MOTHER, , Age: 60, Cause: Colon cancer Past Social History Social History Comment Patient was occasional alcohol consumption but quit 35 years ago Smokes marijuana Does not consume drugs Quit smoking 14 years ago Lives at home with boyfriend Primary care: [facility] at [facility] Dr. Duque Nephrology Dr. Starr Smoking: Quit greater than 1 year Drug Use: None Lives In: Home ROS ROS All other systems reviewed in full and negative except for the pertinent positives mentioned in the HPI Exam Vitals: Vital Signs Date Time Temp Pulse Resp B/P (MAP) Pulse Ox O2 Delivery O2 Flow Rate FiO2 10/28/24 01:19 75 10/28/24 00:50 97.9 16 138/88 (105) 99 0 General: General: Alert, awake, oriented, not in acute distress HEENT: PERRLA, no icterus, pallor, lymphadenopathy, carotid bruit Respiratory system: Bilateral vesicular breath sounds heard, no adventitious breath sounds CVS: S1-S2 heard, grade 3/6 systolic ejection click murmur present in the aortic and pulmonary area with radiation to the mitral area GI: Soft, nontender, no organomegaly, no guarding/rigidity, bowel sounds present Neuro: No focal neurological deficits present Extremities: AV fistula in the right hand, no edema, cyanosis Skin: Warm and dry, flushing and dilated veins present in the collar region on the chest Diagnostic Data Last Recorded Lab Results: 10/27/246 10/27/248 Diagnostic Data: Laboratory Tests Test 10/27/24 22:18 APTT (Heparin Protocol) 36 SECONDS (45-60) L Coagulation Comments Advance Care Planning Advanced Care plannin - 30 Minutes (I spent 20 minutes discussing various resuscitative measures and the patient decided to be full code) Additional Plan Assessment: A 59-year-old female was transferred from [place] with a past medical history of ESRD on dialysis, HTN, lupus presented to the ED in view of elevated troponins and chest pain. Patient is admitted for the evaluation management of NSTEMI. Plan: NSTEMI EKG: T-wave depressions, ST changes in multiple leads Elevated troponins, downtrending. Troponin level at OSH: 0.89 Started on IV heparin drip, continue aspirin 81 mg Sublingual nitroglycerin 0.4 mg p.r.n. for chest pain Optimization with GDM T: Metoprolol succinate 25 mg, losartan 50 mg Follow up with echo Echo from 2013 revealed EF of 60-65% Cardiology consult in a.m. Acute on chronic heart failure, unknown EF ACC/AHA: Stage C, NYHA: Class III Chronically elevated proBNP, 2/2 ESRD & CHF Follow up with echo, CT chest Chest x-ray: Streaky bilateral lower lobe opacities favored to represent atelectasis, though infection is not excluded. Titrate Lasix as required Strict Is&Os Optimization with GDMT: Metoprolol succinate 25 mg, losartan 50 mg (consider SGLT2 inhibitors if the patient has low EF) ESRD on dialysis (M, W, F) Hyperkalemia Elevated BUN and creatinine Hyperkalemia secondary to the above Consulted with Nephrology in a.m. COPD not in acute exacerbation Leukocytosis, lactic acidosis Suspicious chest x-ray finding for pneumonia Follow up with CT chest Empirically started with the patient on IV Rocephin Follow up with procalcitonin One time IV fluids at 50 cc/hour while monitoring for fluid overload DuoNeb q.4h p.r.n. HTN Continue clonidine 0.2 mg b.i.d., hydralazine 50 mg PO TID, losartan 50 mg Held lisinopril 20 mg, seems like patient is on both is on Luciano and Arb at home Lupus Rheumatoid arthritis Continue hydroxychloroquine 200 mg p.o. daily PAD status post graft and stent placed in the abdominal aorta and the lower extremities Continue aspirin Adjustment disorder with depressive mood Anxiety disorder Continue clonazepam 0.5 mg, not on any other medications Code status: Full code Diet: NPO Anticoagulation: Heparin drip Disposition: Admit to PCU, cardiology consult in a.m. in nephrology consult in a.m. Salvatore Cole MD Internal Medicine, PGY 2 Agree with the plan above with no changes. Discussed case with the resident and agree with the assessment and plan. Aishwarya Webb MD Critical Care Date of Service: Oct 27, 2024 Billing Provider: AISHWARYA WEBB MD, SIVA, RES Oct 28, 2024 03:20 AISHWARYA WEBB MD Oct 28, 2024 18:40
[2024-10-28] MEDS ORDERED: ipratropium/albuterol 3ml nebule NEB PRN (03:35)
[2024-10-28] MEDS: normal saline 1000ml 1,000 ML IV ONE (04:09)
[2024-10-28] MEDS: sodium polystyrene sulfonate 15gm/60ml oral suspension PO ONE (05:11)
[2024-10-28 05:26] LABS: MEAN PLATELET VOLUME 9.3 FL (7.4-10.4); RED CELL DISTRIBUTION WIDTH 16.8 % (11.5-14.5)
--- NOTE | 2024-10-28 06:31 | ELECTROCARDIOGRAPH REPORT ---
[facility] Test Date: 2024-10-27 Test Time: 21:46:37 Pat Name: JAZ HUERTA Department: EMERGENCY ROOM Room: [place] [address] A Gender: F Computer Graphics Illustrator: : 1965 Requested By: KRYSTLE ARANGO Order Number: [id number] Reading MD: Dr. Bryon Esparza Measurements Intervals [place] Rate: 71 P: 74 CT: 198 QRS: 65 QRSD: 97 T: 234 QT: 494 QTc: 537 Interpretive Statements Sinus rhythm Probable LVH with secondary repol abnrm Abnormal T, probable ischemia, lateral leads Anterior ST elevation, probably due to LVH Prolonged QT interval Electronically Signed On 10-28-2024 18:20:[address] Bryon Esparza Please click the below link to view image of tracing.
[2024-10-28] MEDS: MESSAGE TO NURSING IV ONE ×4 (06:41→22:30)
[2024-10-28] MEDS: heparin 10,000 units/1 ML INJ IV PRN (06:45)
[2024-10-28] MEDS: aspirin 81mg, enteric-coated 1 TAB TABLET.DR PO SCH (07:56)
[2024-10-28] MEDS: metoprolol succinate 25mg (24-HOUR) SR. Tablet PO SCH (07:56)
[2024-10-28] MEDS: docusate sod 100mg capsule PO SCH (07:57)
[2024-10-28] MEDS: CefTRIAXone/D5W-Rocephin 1gm 50 ML IV SCH (07:57)
[2024-10-28] MEDS: K and/or MAG REPLACEMENT MC SCH (08:00)
[2024-10-28] MEDS ORDERED: non-formulary drug (Labetalol Hcl 1 TAB) PO SCH (08:00)
[2024-10-28] MEDS ORDERED: albuterol 2.5 MG/3 ML nebule NEB ONE (08:40)
[2024-10-28] MEDS: insulin regular, human U-100 10ml vial - multi-dose IV ONE (11:02)
[2024-10-28] MEDS: CALCIUM GLUC 1gm/50ml NACL,iso 50 ML IV ONE (11:02)
[2024-10-28] MEDS: dextrose 50%-water 50ml dispensing syringe IV ONE (11:03)
--- NOTE | 2024-10-28 12:37 | RADIOLOGY REPORT ---
Procedure: CT CT CHEST Reason for study/Clinical History: pneumonia Comparison Study: None TECHNIQUE: Multidetector CT of the chest was performed from the lung apices to the upper abdomen with out the use of intravenous contract. Axial, coronal and sagittal multiplanar reformats were performed . Radiation Dose Information: CT Dose: CTDI volume is 4.7 mGy. Dose-length product is 172.4 mGy*cm The dose indicators for CT are the volume Computed Tomography (CT) Dose Index (CTDIvol) and the Dose Length Product (DLP), and are measured in units of mGy and mGy-cm, respectively. These indicators are not patient dose, but values generated from the CT scanner acquisition factors. The report includes radiation exposure data for exposures received during this examination. FINDINGS: Lower neck: Unremarkable. Lungs: Multifocal patchy ground-glass airspace opacities are present in the left upper lobe and bilat eral lung bases. Mild diffuse interlobular septal thickening. Heart/Vascular Structures: Cardiomegaly. Coronary artery calcifications. Vascular calcifications of t he aorta. Lymph Nodes: No adenopathy Pleura: Trace right pleural effusion. Musculoskeletal: No acute osseous abnormality. Diffuse increased attenuation to the visualized osseou s structures possibly representing renal osteodystrophy. Soft tissues: Normal. Upper abdomen: Limited portions of the upper abdomen are unremarkable. IMPRESSION: Mild diffuse interlobular septal thickening and cardiomegaly. This may represent mild fluid overload. Multifocal mild patchy ground-glass airspace opacities in the left upper lobe and bilateral lung base s.
--- NOTE | 2024-10-28 13:11 | CONSULTATION REPORT - RESIDENT ---
Consult Providers to CC Resident Creating Document: MADISONANDREATIERADAWSON KELLEY History of Present Illness Reason for Admit\\Complaint: Shortness of breaths History of Present Illness This is a 59-year-old pleasant female patient who presents to the hospital due to increasing shortness of breath and symptoms of chest heaviness. She describes the pain as " elephant sitting on the chest" and " insufficient oxygen". She has a history of ESRD, gets dialysis on Saturday, Saturday and . 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 She is currently admitted to the hospital for NSTEMI/type 2 SC. Allergies: Coded Allergies: Penicillins (Verified Allergy, Mild, 12/04/13) mom told her she had one as a child. Home Medications Home Medications Active Reported Lokelma (Sodium Zirconium Cyclosilicate) 10 Gram Powd.pack Hydralazine HCl 50 Mg Tablet 1 Tab PO TID Losartan Potassium 50 Mg Tablet 1 Tab PO BID Metoprolol Succinate 25 Mg Tab.sr.24h 1 Tab PO DAILY Plaquenil* (Hydroxychloroquine Sulfate) 200 Mg Tablet 1 Tab PO DAILY Ventolin Hfa (Albuterol Sulfate) 90 Mcg Hfa.aer.ad Clonazepam 0.5 Mg Tablet 1 Tab PO BID PRN Promethazine HCl 12.5 Mg Supp.rect 1 Supp RC Q4H PRN Loniten* (Minoxidil) 2.5 Mg Tablet 2 Tab PO BID Lisinopril 20 Mg Tablet 1 Tab PO DAILY Labetalol Hcl 300 Mg Tablet 1 Tab PO TID PhosLo tablet (Calcium Acetate) 667 Mg Tablet 3 Tab PO EACH MEAL Nephro-Luciano Tablet (Folic Acid/Vitamin B Comp W-C) 0.8 Mg Tablet 1 Tab PO AM Clonidine Hcl 0.2 Mg Tablet 0.2 Mg PO BID Past Medical History Past Medical History HTN CHF ESRD on hemodialysis Adjustment disorder with depressive mood Lupus, RA COPD PAD status post graft and stent placed in the abdominal aorta and the lower extremities Carpal tunnel syndrome Past Surgical History Surgical History Comment Right nephrectomy secondary to multiple stones Left kidney defect with repair Carpal tunnel surgery Abortions and miscarriages Family History Family History: (Cancer) Malignant carcinoid tumor MOTHER, , Age: 60, Cause: Colon cancer, Onset:50's - 60 FH: alcohol abuse FATHER, , Age: 70, Cause: Lung cancer FH: stroke MOTHER, , Age: 60, Cause: Colon cancer Past Social History Social History Comment Smoked two packs of cigarettes per day for 20 years, quit smoking 35 years ago Continues to smoke marijuana. No other illicit drug abuse. Lives at home with a boyfriend. Ambulatory ROS ROS As stated above in the HPI, otherwise all systems are reviewed and negative. Exam Vitals: Vital Signs Date Time Temp Pulse Resp B/P (MAP) Pulse Ox O2 Delivery O2 Flow Rate FiO2 10/28/24 08:00 13 96 Room Air 10/28/24 07:58 65 10/28/24 07:38 0 21 10/28/24 06:00 97.3 169/95 (119) General: General: Awake and Alert, no acute distress. HEENT: Conjunctiva pink, Sclera clear, Mucus Membranes moist. Resp: Unlabored. Lungs clear to auscultation bilaterally. Heart: Regular Rate and rhythm, normal S1 and S2, pansystolic grade 4/5 murmur Abdomen: Soft and non tender no organomegaly Extremities: No cyanosis,clubbing or edema. Skin: Warm and Dry. Diagnostic Data Last Recorded Lab Results: 10/28/24 0506 10/28/24 0506 Diagnostic Data: Laboratory Tests Test 10/28/24 11:48 APTT (Heparin Protocol) 63 SECONDS (45-60) H Coagulation Comments Additional Plan ESRD: Mon, Sat, and schedule CXR reviewed; evidence for chronic emphysematous changes. No fluid overload status Usually gets 2-3lts removed Dialysis done today 2K bath ordered Continue Sevelamer TID; monitor phos daily Strict input and output monitoring Continue monitoring BMP NSTEMI: On heparin drip High risk for CAD considering intermediate frame tender dialysis Plan for cardiac cath in am as per Dr Banks Will follow with close monitoring of labs after the procedure and plan for dialysis after the procedure High blood pressure: Control BP as needed with labetolol Lupus and RA: Continue the HCQ COPD: Stable On room air Continue management as per primary Lines: PIV Code Status Full code Date of Service: Oct 28, 2024 Billing Provider: DEACON KIM III, DEEPANJALI, DAWSON Oct 28, 2024 13:11
--- NOTE | 2024-10-28 14:03 | CONSULTATION REPORT ---
History of Present Illness Providers to CC CC: MAVIS BANKS MD ~ Reason for Admit\Admit Dx: Cardiology Consultation Refering MD: Hospitalist/Residency Service History of Present Illness 59 year-old female with PMH significant for ESRD on HD, COPD, SLE, PAD, HTN, CHF presented to [facility] with increasing dyspnea on exertion, and chest pain. She describes the chest pain as intermittent, on the right side of her upper chest near her shoulder. She describes her dyspnea is transient, worse at night. She admits to both orthopnea and PND. At the time of exam, she states her chest pain has resolved. She has no respiratory distress in bed, states she can tolerate walking to the bathroom well. Allergies: Coded Allergies: Penicillins (Verified Allergy, Mild, 12/04/13) mom told her she had one as a child. Active prescriptions Cardiac Meds: Metoprolol Succinate 25mg QD. Clonidine 0.2mg BID. Losartan 50mg QD. Hydralazine 50mg QD. Heparin drip SL NTG PRN Home Medications Home Medications Active Reported Lokelma (Sodium Zirconium Cyclosilicate) 10 Gram Powd.pack Hydralazine HCl 50 Mg Tablet 1 Tab PO TID Losartan Potassium 50 Mg Tablet 1 Tab PO BID Metoprolol Succinate 25 Mg Tab.sr.24h 1 Tab PO DAILY Plaquenil* (Hydroxychloroquine Sulfate) 200 Mg Tablet 1 Tab PO DAILY Ventolin Hfa (Albuterol Sulfate) 90 Mcg Hfa.aer.ad Clonazepam 0.5 Mg Tablet 1 Tab PO BID PRN Promethazine HCl 12.5 Mg Supp.rect 1 Supp RC Q4H PRN Loniten* (Minoxidil) 2.5 Mg Tablet 2 Tab PO BID Lisinopril 20 Mg Tablet 1 Tab PO DAILY Labetalol Hcl 300 Mg Tablet 1 Tab PO TID PhosLo tablet (Calcium Acetate) 667 Mg Tablet 3 Tab PO EACH MEAL Nephro-Luciano Tablet (Folic Acid/Vitamin B Comp W-C) 0.8 Mg Tablet 1 Tab PO AM Clonidine Hcl 0.2 Mg Tablet 0.2 Mg PO BID Past Medical History Medical History Comment HTN CHF ESRD on hemodialysis Adjustment disorder with depressive mood Lupus COPD PAD status post graft and stent placed in the abdominal aorta and the lower extremities Rheumatoid arthritis Carpal tunnel syndrome Past Surgical History Surgical History Comment Right nephrectomy secondary to multiple stones Left kidney defect with repair Carpal tunnel surgery Abortions and miscarriages Past Family History Family History: (Cancer) Malignant carcinoid tumor MOTHER, , Age: 60, Cause: Colon cancer, Onset:50's - 60 FH: alcohol abuse FATHER, , Age: 70, Cause: Lung cancer FH: stroke MOTHER, , Age: 60, Cause: Colon cancer Past Social History Social History Comment Smokes marijuana Does not consume drugs or use alcohol Quit smoking cigarettes 14 years ago Lives at home with boyfriend Primary care: [facility] Dr. Starr Physical Exam Last Vital Signs Recorded: Temperature: 97.6, Source: Temporal, Heart Rate: 59, Respiratory Rate: 14, BP: 168/88, Pulse Oximetry: 96, Weight: 43.500 General Appearance: alert, no apparent distress EENT: PERRL/EOMI, normal ENT inspection Neck: normal inspection Respiratory: no respiratory distress, crackles Chest: no accessory muscle use Cardiovascular: regular rate, rhythm, no murmur Peripheral Pulses: 2+ radial (R), 2+ radial (L) Peripheral Pulses Unable to palpate pedal pulses. Feet with positive signs of perfusion, warm, capillary refill <2 seconds. Gastrointestinal: non-tender Back: no CVA tenderness Extremities: normal range of motion Extremities Dialysis fistula noted in bilat upper extremities. States RUE is active. Neurologic: oriented x4 Psychiatric: normal mood/affect Skin: normal color Lymphatic: no adenopathy Review of Systems All Other Systems at this time: Reviewed and Negative ROS ROS completed and negative except for that which is stated in HPI. Results EKG EKG NSR, n/s ST and T-wave abnormalities. Echocardiogram Echocardiogram 10/27/24 LV: Mild concentric hypertrophy, severe systolic dysfunction. LVEF 25-30%. Mid-distal hypokinesis, not classic for but suggestive of Takotsubo CM vs. largeLAD infarct. Grade 3 diastolic dysfunction. RV: Normal XIOMY (mild) AV: moderate , ORIN 1.1cm2, MG 12mmHg, MV: mild regurgitation TV: mild-moderate regurgitation PA: peak systolic PA pressure 54mmHg X-ray X-ray CT Chest Mild diffuse interlobular septal thickening and cardiomegaly. This may represent mild fluid overload. Multifocal mild patchy ground-glass airspace opacities in the left upper lobe and bilateral lung bases. CXR Streaky bilateral lower lobe opacities favored to represent atelectasis, though infection is not excluded. Mild bronchial wall thickening which can be seen in the setting of chronic large airways disease or viral bronchitis Diagram Lab Result Diagram: 10/28/24 0506 10/28/24 0506 Assessment/Plan Additional Plan 59 year-old female with PMH significant for ESRD on HD, COPD, SLE, PAD, HTN, CHF presented to [facility] with increasing dyspnea on exertion, and chest pain. She is currently undergoing hemodialysis at time of exam. She denies chest pain. She denies SOB, complaining only of dyspnea with exertion. Troponins mildly elevated, trending down. BNP >30,000. Potassium 6.5. NSTEMI -Continue heparin drip x48 hours. -Possible heart catheterization on 10/[address] Eleanor Banks ( delay due to dialysis and potassium levels). -Continue Metop Succ. 25mg QD. [id number]-Jsvvfxi Systolic and Diastolic Heart Failure Echo yesterday reveals LVEF 25-30%, grade 3 diastolic dysfunction. AHA stage C, NYHA class III -Continue Metop Succ 25mg QD. -D/C Losartan. -Start Entresto / -SGLT2i and diuretics contraindicated due to ESRD. Hypertensive Heart Disease with ESRD and Heart Failure -Clonidine 0.2mg BID -Hydralazine 50mg TID -Entresto and Metop as above. I have discussed this plan with supervising physician, Dr. Eleanor Banks who is in agreement of above. Supervising MD Supervising Physician: BERNADETTE Hi METAL CHECKER Oct 28, 2024 14:03
[2024-10-28] MEDS: heparin 1,000 units/ml 10ml inj HE ONE ×2 (14:06)
[2024-10-28] MEDS: LIDOcaine 1% (10mg/ml) 2ml vial SQ ONE (14:06)
[2024-10-28] MEDS: NUT.TX.IMP.RENAL FXN,LAC-REDUC (Nepro) 237 ML VANILLA PO SCH (17:40)
[2024-10-28] MEDS: sevelamer carbonate 0.8gm powder pkt PO SCH (18:01)
--- NOTE | 2024-10-28 18:31 | PROGRESS NOTE ---
Daily Progress Note Providers to CC ~ Antibiotic Timeout Antibiotic Ordered?: No Subjective Was seen in presence of nursing staff, patient's sister and one other relative. As per patient she has pain in the right side of the neck radiating towards her right arm over the fistula area. She mentioned that she has chest discomfort which is better than yesterday. She do not want to see Dr. Navarro due to some old conflicts with him. Cardiology consult requested from other wildlife removal specialist and Dr. Cherri Banks evaluated the patient today appreciate his input for this patient's case. Cardiology consult requested from Dr. Ramos who is willing to evaluate the patient today and we will plan for dialysis as today is her dialysis day potassium elevated 6.5 treatment ordered for hyperkalemia in AM . Patient was feeling short of breath even though her saturation was 98% on room air. Objective Vital Signs Date Time Temp Pulse Resp B/P (MAP) Pulse Ox O2 Delivery O2 Flow Rate FiO2 10/28/24 16:45 98.4 69 16 130/65 (86) 98 Room Air 10/28/24 07:38 0 21 Result Diagram: 10/28/24 0506 10/28/24 0506 General-patient not in any acute distress, alert awake oriented, chronically ill-appearing HEENT-atraumatic normocephalic, neck supple without elevated JVD, no thyromegaly or carotid bruit. No lymphadenopathy bilaterally. Eyes-no icterus or pallor seen in eyes Chest-coarse breath sounds to auscultation bilaterally, breathing nonlabored no tachypnea, no wheezing, no crepitation, no crackles. Heart-S1-S2 normal, regular heart rate no murmur Abdomen bowel sounds positive on auscultation, soft nondistended nontender no guarding, no rigidity Skin no active skin rash, dialysis fistula present over right upper extremity Neurology-grossly intact, nonfocal alert awake oriented Extremity- no pedal edema able to move all 4 extremities dialysis fistula present over right upper extremity Psychiatry - patient is not confused or agitated cooperated during physical examination Coagulation Studies Laboratory Tests Test 10/28/24 11:48 APTT (Heparin Protocol) 63 SECONDS (45-60) H Coagulation Comments Problem\Assessment\Plan A 59-year-old female was transferred from [place] with a past medical history of ESRD on dialysis, HTN, lupus presented to the ED in view of elevated troponins and chest pain. Patient is admitted for the evaluation management of NSTEMI. Plan: NSTEMI EKG: T-wave depressions, ST changes in multiple leads Elevated troponins, downtrending. Troponin level at OSH: 0.89 Started on IV heparin drip, continue aspirin 81 mg Sublingual nitroglycerin 0.4 mg p.r.n. for chest pain Optimization with GDM T: Metoprolol succinate 25 mg, losartan 50 mg Follow up with echo Echo from 2013 revealed EF of 60-65% Consulted with cardiology team today Patient is started on Entresto, continued metoprolol succinate 25 mg once daily discontinued losartan.SGLT2i and diuretics contraindicated due to ESRD. Acute on chronic heart failure, unknown EF ACC/AHA: Stage C, NYHA: Class III Chronically elevated proBNP, 2/2 ESRD & CHF Follow up with echo, CT chest Chest x-ray: Streaky bilateral lower lobe opacities favored to represent atelectasis, though infection is not excluded. Titrate Lasix as required Strict Is&Os Optimization with GDMT: Metoprolol succinate 25 mg, losartan 50 mg (consider SGLT2 inhibitors if the patient has low EF) ESRD on dialysis (M, W, F) Hyperkalemia Elevated BUN and creatinine Hyperkalemia secondary to the above Consulted with Nephrology team today COPD not in acute exacerbation Leukocytosis, lactic acidosis Suspicious chest x-ray finding for pneumonia Followed up with CT chest Empirically started with the patient on IV Rocephin Follow up with procalcitonin One time IV fluids at 50 cc/hour while monitoring for fluid overload DuoNeb q.4h p.r.n. HTN Continue clonidine 0.2 mg b.i.d., hydralazine 50 mg PO TID, losartan 50 mg Held lisinopril 20 mg, seems like patient is on both is on Luciano and Arb at home Lupus Rheumatoid arthritis Continue hydroxychloroquine 200 mg p.o. daily PAD status post graft and stent placed in the abdominal aorta and the lower extremities Continue aspirin Adjustment disorder with depressive mood Anxiety disorder Continue clonazepam 0.5 mg, not on any other medications Code status: Full code Diet: NPO Anticoagulation: Heparin drip 10/28/24- Was seen in presence of nursing staff, patient's sister and one other relative. As per patient she has pain in the right side of the neck radiating towards her right arm over the fistula area. She mentioned that she has chest discomfort which is better than yesterday. She do not want to see Dr. Navarro due to some old conflicts with him. Cardiology consult requested from other wildlife removal specialist and Dr. Cherri Banks evaluated the patient today appreciate his input for this patient's case. Cardiology consult requested from Dr. Ramos who is willing to evaluate the patient today and we will plan for dialysis as today is her dialysis day potassium elevated 6.5 treatment ordered for hyperkalemia in AM . Patient was feeling short of breath even though her saturation was 98% on room air. Patient's current condition is guarded Sepsis Screening Skin Color: Normal Date of Service: Oct 28, 2024 Billing Provider: COURTNEY YEH MD Common Visit Codes: [id number] INP/OBS CARE(HIGH) COURTNEY YEH MD Oct 28, 2024 18:31
[2024-10-28] MEDS: sacubitril/valsartan 49mg-51mg tablet PO SCH (21:37)
--- NOTE | 2024-10-28 23:35 | ELECTROCARDIOGRAPH REPORT ---
[facility] Test Date: 2024-10-28 Test Time: 23:33:42 Pat Name: JAZ HUERTA Department: [facility]S [facility]: [id number] Room: [place] [id number] A Gender: F Complaint Evaluation Supervisor: : 1965 Requested By: COURTNEY YEH Order Number: [id number] Reading MD: Dr. Prasanna Jauregui Measurements Intervals [place] Rate: 64 P: 65 DC: 169 QRS: 40 QRSD: 90 T: 229 QT: 672 QTc: 694 Interpretive Statements Sinus rhythm LAE, consider biatrial enlargement LVH w/ repol abnormalities, possible ischemia or EVOLVING ACUTE INJURY PATTERN Prolonged QT interval Electronically Signed On 10-29-2024 7:58:[address] Prasanna Jauregui Please click the below link to view image of tracing.
[2024-10-29] VITALS (17 sets, daily range): BP systolic 109–182; BP diastolic 46–95; PULSE 60–73; RESP 16–23; TEMP 97.4–98; O2SAT 93–98
[2024-10-29 05:32] LABS: CHOL/HDL RATIO 2.5 (0.00-4.99); CREATININE 4.86 MG/DL (0.40-0.90); LDL CHOLESTEROL 76 MG/DL (50-100); PHOSPHORUS 3.5 MG/DL (2.3-4.5); TOTAL CARBON DIOXIDE 25.1 MMOL/L (24-32); eCRCL 8 ML/MIN; eGFR 9 ML/MIN
[2024-10-29] MEDS ORDERED: heparin 10,000 units/1 ML INJ IV PRN (05:45)
[2024-10-29] MEDS: heparin 10,000 units/1 ML INJ IV ONE (05:47)
[2024-10-29] MEDS: labetalol 20mg/4ml (5mg/ml) syringe IV ONE (06:00)
[2024-10-29] MEDS: MESSAGE TO NURSING IV ONE ×2 (06:01→12:39)
[2024-10-29 06:49] LABS: MEAN PLATELET VOLUME 9.2 FL (7.4-10.4); RED CELL DISTRIBUTION WIDTH 17.0 % (11.5-14.5)
[2024-10-29] MEDS: heparin, porcine 5000 units/ml vial IV ONE (06:54)
--- NOTE | 2024-10-29 08:49 | PROGRESS NOTE- Residence ---
Progress Note - Resident Providers to CC Resident Creating Document: CICI CARRASCO RES ~ Central Line/PICC still needed: No Mixon-Non Protocol Mixon Indications Met/Not Met: F/C Indications Not Met Antibiotic Timeout Antibiotic Ordered?: Yes Subjective Patient is comfortably resting at bedside. No acute complaints. No acute overnight events. Possible plan for cardiac catheterization today. Objective Vital Signs Date Time Temp Pulse Resp B/P (MAP) Pulse Ox O2 Delivery O2 Flow Rate FiO2 10/29/24 07:13 69 10/29/24 06:00 97.6 23 150/93 (112) 97 Room Air 10/29/24 00:37 0 21 Result Diagram: 10/29/24 0545 10/29/24 0438 General: Awake and Alert, no acute distress. HEENT: Conjunctiva pink, Sclera clear, Mucus Membranes moist. Resp: Unlabored. Lungs clear to auscultation bilaterally. Heart: Regular Rate and rhythm, normal S1 and S2, pansystolic grade 4/5 murmur Abdomen: Soft and non tender no organomegaly Extremities: No cyanosis,clubbing or edema. Skin: Warm and Dry. Coagulation Studies Laboratory Tests Test 10/29/24 04:38 APTT (Heparin Protocol) 32 SECONDS (45-60) L Coagulation Comments Assessment Assessment This is 59-year-old female patient who was transferredThis is a 59-year-old pleasant female patient who presents to the hospital due to increasing shortness of breath and symptoms of chest heaviness. She is currently admitted to the hospital for NSTEMI. She has a history of ESRD, gets dialysis on Saturday, Saturday and . 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 Her dialysis is continuing in the hospital. Plan Plan ESRD: Sat, Sat, and schedule CXR reviewed; evidence for chronic emphysematous changes. No fluid overload status Usually gets 2-3lts removed; anuric Dialysis done yesterday on 10/28/2024. Based on cardiac catheterization, we will either performed the dialysis tomorrow or the day after. Discussed with the patient, she is agreeable with the plan Continue Sevelamer TID; monitor phos daily Strict input and output monitoring Continue monitoring BMP NSTEMI: On heparin drip High risk for CAD considering terminologist dialysis Possible plan for cardiac catheterization Will follow with close monitoring of labs after the procedure and plan for dialysis after the procedure High blood pressure: Control BP as needed with labetolol Lupus and RA: Continue the HCQ COPD: Stable On room air Continue management as per primary Lines: PIV Code Status Full code Cici Carrasco PGY3, Internal medicine resident Date of Service: Oct 29, 2024 Billing Provider: DEACON KIM III, DEEPANJALI, RES Oct 29, 2024 08:49
--- NOTE | 2024-10-29 14:53 | PROGRESS NOTE ---
Progress Note Cardiology Providers to CC ~ Subjective Subjective No current CP/SOB at rest. This morning walked and felt well, but while making her bed was SOB. Objective Result Diagram: 10/29/24 0545 10/29/24 1926 Objective General: Awake, alert, oriented. No apparent distress Neck: Supple. Normal range of motion. No JVD Respiratory: Lungs are clear to auscultation bilaterally. No respiratory distress. Chest: Normal shape and size. No accessory muscle use. Cardiovascular: Regular rate and rhythm. S1-S2. II/ CHAPO RUSB. No gallop, rub. Gastrointestinal: Abdomen is soft. Nontender to palpation. Bowel sounds present. Extremities: No lower extremity edema, cyanosis or clubbing. Neurologic: Alert and oriented x4. Nonfocal Psychiatric: Normal mood and affect. Skin: Normal color. Warm and dry. Coagulation Studies Laboratory Tests Test 10/29/24 11:43 APTT (Heparin Protocol) 46 SECONDS (45-60) Coagulation Comments Problem\Assessment\Plan Additional Plan 59 year-old female with PMH significant for ESRD on HD, COPD, SLE, PAD, HTN, CHF presented to [place] [facility] with increasing dyspnea on exertion, and chest pain. She is currently undergoing hemodialysis at time of exam. She denies chest pain. She denies SOB, complaining only of dyspnea with exertion. Troponins mildly elevated, trending down. BNP >30,000. Potassium 6.5. NSTEMI -Continue heparin drip pending heart cath -Continue Metop Succ. 25mg QD. -ASA 81 mg daily -Recommend high intensity statin. -Referal for cardiac rehab. [id number]-[id number] Systolic and Diastolic Heart Failure Echo yesterday reveals LVEF 25-30%, grade 3 diastolic dysfunction. AHA stage C, NYHA class III -Continue Metop Succ 25mg QD. -D/C Losartan. -Start Entresto 49/ -SGLT2i and diuretics contraindicated due to ESRD. -Diuretic mgt per nephrology QT Prolongation --Monitor. Avoid QT proloning drugs. ESRD on Dialysis HTN --Started on Entresto. Uptitrate as needed --On clonidine 0.2 mg BID --On hypdralizine 50 mg TID Lupus --On Plaquenil Case discussed with DR. Agudelo. Risks, benefits and alt of cardiac cath reviewed with pt. She had the oppertunity to ask questions and willing to proceed. Supervising Physician: JAGDEEP Perez NP Oct 29, 2024 14:52
[2024-10-29] MEDS ORDERED: heparin 1,000unit/ml 10ml vial 10 ML ONE (14:55)
[2024-10-29] MEDS ORDERED: midazolam 1 mg/ML 2ml injection ONE ×2 (14:55→15:28)
[2024-10-29] MEDS ORDERED: LIDOcaine 1% 30ml preserv. free vial ONE (14:55)
[2024-10-29] MEDS ORDERED: fentaNYL/PF 50MCG/1 ML 2ML syringe ONE (14:55)
[2024-10-29] MEDS ORDERED: verapamil 2.5 mg/ml inj IV ONE (14:55)
--- NOTE | 2024-10-29 15:49 | CARDIAC CATH REPORT ---
Cardiac Cath Report Providers to CC CC: MAVIS GUTIERRES MD Procedure Comments: 1. Left Heart Catheterization 2. Selective Coronary Angiography 3. Right Femoral artery access 4. Right femoral artery angiography 5. Closure of femoral artery with Perclose x 1 Brief History/Indications: 59yo woman with HTN, HLD, SLE, ESRD(on HD M/W/F), PAD(s/p b/l ISABELA stents, ?RFA graft) found to have depressed EF and referred for evaluation. Techniques: After informed consent was obtained, the patient was brought to the cardiac catheterization laboratory and prepped and draped in usual sterile fashion for left heart catheterization and other procedures mentioned above. The right groin was anesthetized with 1% Lidocaine and the femoral artery accessed via the Seldinger technique after which a 6Fr sheath was placed. Through this a JL4 was used to engage the left coronary artery, a JR4 to engage the right coronary art seferino and left ventricle. At the conclusion of the case the sheath was removed and hemostasis obtained with a Perclose device. Findings Findings: HEMODYNAMICS: LV: 137/8 mmHg LVEDP: 24 mmHg Ao: 124/57, MAP 78 mmHg CORONARY ARTERIES: Co Dominant LMCA: Luminal Irregularities LAD: Prox 30-40% stenosis, distal 40-50% stenosis D1: Ostial 50-60% stenosis LCx: Luminal Irregularities OM1: 20% proximal stenosis OM2: 20% proximal stenosis RCA: 30% proximal stenosis PDA: Luminal Irregularities PL: Luminal Irregularities Results Results: 1. No significant obstructive CAD to explain depressed EF 2. RRA Access, closed with VascBand RECOMMENDATIONS: 1. Recommend uptitration of max-tolerated GDMT BEN GUTIERRES MD Oct 29, 2024 15:49
--- NOTE | 2024-10-29 18:07 | PROGRESS NOTE ---
Daily Progress Note Providers to CC ~ Antibiotic Timeout Antibiotic Ordered?: No Subjective Patient was seen today in presence of charge nurse Luz Elena. Patient apologized for her yesterdays behavior to me . She was waiting to go for the cardiac catheterization and was NPO. As per cardiology consult note" No significant obstructive CAD to explain depressed EF. Recommend uptitration of max-tolerated GDMT" Objective Vital Signs Date Time Temp Pulse Resp B/P (MAP) Pulse Ox O2 Delivery O2 Flow Rate FiO2 10/29/24 16:45 62 125/56 (79) 95 10/29/24 15:00 97.7 20 Room Air 10/29/24 10:09 0 21 Result Diagram: 10/29/24 0545 10/29/24 0438 General-patient not in any acute distress, alert awake oriented, chronically ill-appearing HEENT-atraumatic normocephalic, neck supple without elevated JVD, no thyromegaly or carotid bruit. No lymphadenopathy bilaterally. Eyes-no icterus or pallor seen in eyes Chest-coarse breath sounds to auscultation bilaterally, breathing nonlabored no tachypnea, no wheezing, no crepitation, no crackles. Heart-S1-S2 normal, regular heart rate no murmur Abdomen bowel sounds positive on auscultation, soft nondistended nontender no guarding, no rigidity Skin no active skin rash, dialysis fistula present over right upper extremity Neurology-grossly intact, nonfocal alert awake oriented Extremity- no pedal edema able to move all 4 extremities dialysis fistula present over right upper extremity Psychiatry - patient is not confused or agitated cooperated during physical examination Coagulation Studies Laboratory Tests Test 10/29/24 11:43 APTT (Heparin Protocol) 46 SECONDS (45-60) Coagulation Comments Problem\\Assessment\\Plan A 59-year-old female was transferred from [place] with a past medical history of ESRD on dialysis, HTN, lupus presented to the ED in view of elevated troponins and chest pain. Patient is admitted for the evaluation management of NSTEMI. Plan: NSTEMI EKG: T-wave depressions, ST changes in multiple leads Elevated troponins, downtrending. Troponin level at OSH: 0.89 Started on IV heparin drip, continue aspirin 81 mg Sublingual nitroglycerin 0.4 mg p.r.n. for chest pain Optimization with GDM T: Metoprolol succinate 25 mg, losartan 50 mg Follow up with echo Echo from 2013 revealed EF of 60-65% Consulted with cardiology team today Patient is started on Entresto, continued metoprolol succinate 25 mg once daily discontinued losartan.SGLT2i and diuretics contraindicated due to ESRD. She was waiting to go for the cardiac catheterization and was NPO. As per cardiology consult note" No significant obstructive CAD to explain depressed EF. Recommend uptitration of max-tolerated GDMT" Acute on chronic heart failure, unknown EF ACC/AHA: Stage C, NYHA: Class III Chronically elevated proBNP, 2/2 ESRD & CHF Follow up with echo, CT chest Chest x-ray: Streaky bilateral lower lobe opacities favored to represent atelectasis, though infection is not excluded. Titrate Lasix as required Strict Is&Os Optimization with GDMT: Metoprolol succinate 25 mg, losartan 50 mg (consider SGLT2 inhibitors if the patient has low EF) ESRD on dialysis (M, W, F) Hyperkalemia Elevated BUN and creatinine Hyperkalemia secondary to the above Consulted with Nephrology team today COPD not in acute exacerbation Leukocytosis, lactic acidosis Suspicious chest x-ray finding for pneumonia Followed up with CT chest Empirically started with the patient on IV Rocephin Follow up with procalcitonin One time IV fluids at 50 cc/hour while monitoring for fluid overload DuoNeb q.4h p.r.n. HTN Continue clonidine 0.2 mg b.i.d., hydralazine 50 mg PO TID, losartan 50 mg Held lisinopril 20 mg, seems like patient is on both is on Luciano and Arb at home Lupus Rheumatoid arthritis Continue hydroxychloroquine 200 mg p.o. daily PAD status post graft and stent placed in the abdominal aorta and the lower extremities Continue aspirin Adjustment disorder with depressive mood Anxiety disorder Continue clonazepam 0.5 mg, not on any other medications Code status: Full code Diet: NPO Anticoagulation: Heparin drip 10/28/24- Was seen in presence of nursing staff, patient's sister and one other relative. As per patient she has pain in the right side of the neck radiating towards her right arm over the fistula area. She mentioned that she has chest discomfort which is better than yesterday. She do not want to see Dr. Navarro due to some old conflicts with him. Cardiology consult requested from other medical lab specialist and Dr. Cherri Banks evaluated the patient today appreciate his input for this patient's case. Cardiology consult requested from Dr. Ramos who is willing to evaluate the patient today and we will plan for dialysis as today is her dialysis day potassium elevated 6.5 treatment ordered for hyperkalemia in AM . Patient was feeling short of breath even though her saturation was 98% on room air. Patient's current condition is guarded. Incoming hospitalist will take care of patient in a.m. Sepsis Screening Skin Color: Normal Date of Service: Oct 29, 2024 Billing Provider: COURTNEY YEH MD Common Visit Codes: 60583-UACCRBURHO INP/OBS CARE(HIGH) COURTNEY YEH MD Oct 29, 2024 18:07
[2024-10-29] MEDS: HYDROcodone/acetaminophen 5mg/325mg tablet PO PRN (19:59)
[2024-10-29] MEDS: heparin, porcine 5000 units/ml vial SQ SCH (20:02)
[2024-10-30] VITALS (13 sets, daily range): BP systolic 114–175; BP diastolic 57–95; PULSE 57–72; RESP 15–25; TEMP 97.6–98.8; O2SAT 9–100
[2024-10-30 06:13] LABS: CREATININE 7.70 MG/DL (0.40-0.90); PHOSPHORUS 4.9 MG/DL (2.3-4.5); TOTAL CARBON DIOXIDE 25.6 MMOL/L (24-32); eCRCL 5 ML/MIN; eGFR 5 ML/MIN
[2024-10-30 06:50] LABS: MEAN PLATELET VOLUME 8.9 FL (7.4-10.4); RED CELL DISTRIBUTION WIDTH 17.1 % (11.5-14.5)
[2024-10-30] MEDS: heparin 1,000 units/ml 10ml inj HE ONE ×2 (08:15)
[2024-10-30] MEDS: LIDOcaine 1% (10mg/ml) 2ml vial SQ ONE (08:20)
--- NOTE | 2024-10-30 08:52 | PROGRESS NOTE- Residence ---
Progress Note - Resident Providers to CC Resident Creating Document: CICI CARRASCO RES ~ Central Line/PICC still needed: No Mixon-Non Protocol Mixon Indications Met/Not Met: F/C Indications Not Met Antibiotic Timeout Antibiotic Ordered?: No Subjective Patient is comfortable at bedside, no acute events. Status post cardiac catheterization yesterday. Patient is medically stable. Objective Vital Signs Date Time Temp Pulse Resp B/P (MAP) Pulse Ox O2 Delivery O2 Flow Rate FiO2 10/30/24 08:30 20 10/30/24 08:18 62 10/30/24 02:00 97.8 147/71 (96) 96 Room Air 10/29/24 20:00 0.0 21 Result Diagram: 10/30/24 0638 10/30/24 0514 General: Awake and Alert, no acute distress. HEENT: Conjunctiva pink, Sclera clear, Mucus Membranes moist. Resp: Unlabored. Lungs clear to auscultation bilaterally. Heart: Regular Rate and rhythm, normal S1 and S2, pansystolic grade 4/5 murmur Abdomen: Soft and non tender no organomegaly Extremities: No cyanosis,clubbing or edema. Skin: Warm and Dry. Coagulation Studies Laboratory Tests Test 10/29/24 18:33 APTT (Heparin Protocol) 26 SECONDS (45-60) L Coagulation Comments Assessment Assessment This is a 59-year-old pleasant female patient who presents to the hospital due to increasing shortness of breath and symptoms of chest heaviness. She is currently admitted to the hospital for type 2 ND. She has a history of ESRD, gets dialysis on Saturday, Saturday and . 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 Her dialysis is continuing in the hospital. Plan Plan ESRD: Sat, Sat, and schedule CXR reviewed; evidence for chronic emphysematous changes. No fluid overload status Usually gets 2-3lts removed; anuric Dialysis performed today, minimal fluid removed. Possible plans for discharge back home Continue Sevelamer TID; monitor phos daily Strict input and output monitoring Continue monitoring BMP Type 2 ND: NSTEMI ruled out Heart failure with reduced EF of unknown etiology Cardiac catheterization performed yesterday. Nonobstructive CAD. Stopped heparin drip On appropriate GDM T, cardiology following Will follow with close monitoring of labs after the procedure and plan for dialysis after the procedure High blood pressure: Control BP as needed with labetolol Lupus and RA: Continue the HCQ COPD: Stable On room air Continue management as per primary Lines: PIV Code Status Full code Cici Carrasco PGY3, Internal medicine resident Date of Service: Oct 30, 2024 Billing Provider: DEACON KIM III, DEEPANJALI, RES Oct 30, 2024 08:52
[2024-10-30 09:12] LABS: HBSAG SCREEN Negative (Negative)
[2024-10-30] MEDS ORDERED: SACU1TAB7 PO (12:25)
--- NOTE | 2024-10-30 20:12 | DISCHARGE SUMMARY ---
Discharge Summary Providers to CC ~ Discharge Summary Admission Diagnosis: NSTEMI Hospital Course DATE OF ADMISSION: 10/27/2024 DATE OF DISCHARGE: 10/30/2024 Discharge Diagnosis\\Comment: Type 2 mi End-stage renal disease on dialysis Hyperkalemia Chronic COPD Hypertension Lupus and rheumatoid arthritis PID chronic Anxiety and depression Acute HFrEF Operations\\Procedures: Cardiac catheterization Hemedialysis Consultants: Dr. Joshua Banks cupola tender Dr. Cesar Ramos sox analyst Complications: None Condition on DC: Stable New Medications: Sacubitril/Valsartan (Entresto 49 mg-51 mg Tablet) 49 Mg-51 Mg Tablet 1 TABLET PO BID, #60 TAB Continued Medications: Albuterol Sulfate (Ventolin Hfa) 90 Mcg Hfa.aer.ad Calcium Acetate (PhosLo tablet) 667 Mg Tablet 3 TAB PO EACH MEAL Clonazepam (Clonazepam) 0.5 Mg Tablet 1 TAB PO BID PRN for neuropathy Clonidine Hcl (Clonidine Hcl) 0.2 Mg Tablet 0.2 MG PO BID, TAB Folic Acid/Vitamin B Comp W-C (Nephro-Luciano Tablet) 0.8 Mg Tablet 1 TAB PO AM Hydralazine HCl (Hydralazine HCl) 50 Mg Tablet 1 TAB PO TID Hydroxychloroquine Sulfate* (Plaquenil*) 200 Mg Tablet 1 TAB PO DAILY Metoprolol Succinate (Metoprolol Succinate) 25 Mg Tab.sr.24h 1 TAB PO DAILY Minoxidil* (Loniten*) 2.5 Mg Tablet 2 TAB PO BID, TAB Promethazine HCl (Promethazine HCl) 12.5 Mg Supp.rect 1 SUPP RC Q4H PRN for motion sickness Sodium Zirconium Cyclosilicate (Lokelma) 10 Gram Powd.pack Discontinued Medications: Labetalol Hcl (Labetalol Hcl) 300 Mg Tablet 1 TAB PO TID, TAB Lisinopril (Lisinopril) 20 Mg Tablet 1 TAB PO DAILY, TAB Losartan Potassium (Losartan Potassium) 50 Mg Tablet 1 TAB PO BID Discharge Summary: The patient was admitted by resident physician SALVATORE Negro , under the supervision of MICHAEL Paul MD with the following HPI:"A 59-year-old female with past medical history of ESRD on dialysis, HTN, CHF presented to the ED in view of worsening shortness of breaths and chest pressure over the last two weeks. Patient states that she had chest pain that was substernal in location unable to describe the type of pain and radiation but was able to see the severity is 12/10. Patient denies dizziness, palpitations. Patient endorses orthopnea, PND." The patient has a echocardiogram prior to arrival at [facility] which demonstrated an LVEF of 25-30% which was decreased from previous echocardiogram and the patient had a significantly elevated high sensitivity troponin of 1235 however note that the patient is a dialysis patient and this will be falsely elevated regardless the patient is taken to the cardiac catheterization lab and there was no significant coronary artery stenosis or coronary artery disease and no intervention was required. The patient does have acute HFrEF and was started on Entresto her labetalol was discontinued. The patient initially had hyperkalemia as well as his serum potassium 6.5 this resolved with heme dialysis and the patient has end-stage renal disease and received heme dialysis during hospitalization. I had discharge the patient, however the patient did have 17 beat run of ventricular tachycardia and was recommended by Cardiology to obtain a LifeVest I did inform the patient this and fact and did request rehabilitation case coordinator work on obtaining a LifeVest for the patient however the patient has since has been discharged and left the hospital the patient is to follow up with Dr. Banks in two weeks. Gen. No acute distress alert and oriented 4 Lungs clear to ascultation bilaterally, no wheezes rales or rhonchi appreciated Heart normal sinus rhythm no murmurs rubs or clicks noted Abdomen soft nontender bowel sounds are normoactive Lower extremities no clubbing cyanosis, nor edema appreciated bilaterally The patient felt ready to be discharged and was medically cleared to be discharged on 10/30/2024 The patient was seen and evaluated on day of discharge. Time spent on discharge 40 minutes *Problems/Diagnosis: (1) End-stage renal disease Status: Acute Total Time Spent on D/C: > 30 Minutes Date of Service: Oct 30, 2024 Billing Provider: MARTI LALA DO Common Visit Codes: 55974-ONN/OBS DISCH DAY >30min MARTI LALA DO Oct 30, 2024 20:12
== END 2024-10-30 17:13 | disposition home or self-care (01) | DRG 280 ==
LOC: ER 21:44 → ED HOLD 23:36 → EDBEDREQ 23:43 → PCU 3S 10-28 00:55
PROVIDERS: ADMIT Internal Medicine Pulmonary Disease; ATTEND Internal Medicine
PROC: 5A1D70Z Performance of Urinary Filtration, Intermittent, Less than 6 Hours Per Day (ICD-10-PCS; principal; 2024-10-28)
PROC: 4A023N7 Measurement of Cardiac Sampling and Pressure, Left Heart, Percutaneous Approach (ICD-10-PCS; 2024-10-29)
PROC: B2111ZZ Fluoroscopy of Multiple Coronary Arteries using Low Osmolar Contrast (ICD-10-PCS; 2024-10-29)
PROC: 5A1D70Z Performance of Urinary Filtration, Intermittent, Less than 6 Hours Per Day (ICD-10-PCS; 2024-10-30)
DX: I13.2 Hypertensive heart and chronic kidney disease with heart failure and with stage 5 chronic kidney disease, or end stage renal disease (principal); I50.21 Acute systolic (congestive) heart failure; I21.A1 Myocardial infarction type 2; N18.6 End stage renal disease; I47.29 Other ventricular tachycardia; E87.5 Hyperkalemia; F43.21 Adjustment disorder with depressed mood; M06.9 Rheumatoid arthritis, unspecified; D72.829 Elevated white blood cell count, unspecified; I25.10 Atherosclerotic heart disease of native coronary artery without angina pectoris; E11.51 Type 2 diabetes mellitus with diabetic peripheral angiopathy without gangrene; E11.22 Type 2 diabetes mellitus with diabetic chronic kidney disease; Z99.2 Dependence on renal dialysis; Z88.0 Allergy status to penicillin; Z79.899 Other long term (current) drug therapy; Z82.3 Family history of stroke; Z80.0 Family history of malignant neoplasm of digestive organs; Z90.5 Acquired absence of kidney
CPT/HCPCS: 36415; 71045; 71250; 80048; 80061; 82948; 83036; 83605; 83735; 83880; 84100; 84132; 84145; 84484; 85025; 85651; 85730; 87040; 87081; 87340; 93005; 93458; 94760; 96365; 97116; 97162; 97530; 99152; 99291; A6258; A6449; C1760; E1594; G0257; G0378; J0612; J0696; J1644; J2003; J2250; J2270; J3010; J3490; J7030; J7040; Q9967

== ENCOUNTER 2025-01-03 10:15 | Inpatient (IN) | payer MEDICARE, MEDICAID ==
[2025-01-03] VITALS (7 sets, daily range): BP systolic 118–158; BP diastolic 62–80; PULSE 73–84; RESP 14–18; TEMP 97.3–98.1; O2SAT 96–100
[~2025-01-03] VITALS: Ht 160 cm; Wt 48.0 kg
[~2025-01-03 10:15] MED LIST changes: +ALBU18HF2; -ALBU18HF2 INH; +CLON-567 PO; -CLON0.5T23 PO; +HYDR200T73 PO; +HYDR50TA46 PO; -LABE300T4 PO; -LISI20TA28 PO; +METO-395 PO; +PROM12.574 RC; +SACU1TAB7 PO; +SODI10PO
--- NOTE | 2025-01-03 10:39 | ELECTROCARDIOGRAPH REPORT ---
[facility] Test Date: 2025-01-03 Test Time: 10:34:40 Pat Name: JAZ HUERTA Department: [facility]- Patient ID: [id number] Room: [place] [id number] Gender: F [employer] Teacher: : 1965 Requested By: HENRI HOUGH Order Number: [id number] Reading MD: Dr. Bryon Esparza Measurements Intervals [place] Rate: 75 P: 57 AR: 172 QRS: 47 QRSD: 95 T: 96 QT: 477 QTc: 533 Interpretive Statements Sinus rhythm LVH w/ repol abnormalities, possible ischemia Prolonged QT interval Electronically Signed On 01-07-2025 21:45:[address] Bryon Esparza Please click the below link to view image of tracing.
[2025-01-03 10:50] LABS: MEAN PLATELET VOLUME 7.9 FL (7.4-10.4); RED CELL DISTRIBUTION WIDTH 16.6 % (11.5-14.5)
--- NOTE | 2025-01-03 10:52 | RADIOLOGY REPORT ---
AP portable chest 1 CLINICAL INDICATION: sob Comparison: 10/27/2024 FINDINGS: Heart size is normal. Faint infiltrates seen in the right upper lobe the right lower lobe and left lower lobe IMPRESSION: 1. Compared to previous exam faint bilateral infiltrates
[2025-01-03 10:56] LABS: CREATININE 6.47 MG/DL (0.40-0.90); TOTAL CARBON DIOXIDE 31.4 MMOL/L (24-32); eCRCL 7 ML/MIN; eGFR 7 ML/MIN
--- NOTE | 2025-01-03 11:18 | Physician Documentation ---
History of Present Illness ~ Chief Complaint: See Chief Complaint Stated Complaint: RESPIRATORY FAILURE Time Seen by MD: 10:21 Primary Medical Doctor: Hospitalist/Residency Service Source: patient HPI 59 year old female history of HFrEF, COPD 2 L HI OT, tobacco use, ESRD MWF presenting for SOB. She presented to [facility] for hypoxia despite her home O2. She was in the low 60% on room air and required BiPAP. She had hypertension blood pressure 2 to 3/131, pulmonary edema on chest x-ray. Elevated pro BNP and troponin. Patient reports that she awoke in the middle night short of breath. She turned to per oxygen but did not help. She reports that this happens occasionally. She denies any fever chills chest pain or cough Medication Reconciliation Allergies: Coded Allergies: Penicillins (Verified Allergy, Mild, 12/04/13) mom told her she had one as a child. Scheduled Calcium Acetate (PhosLo tablet), 3 TAB PO EACH MEAL, (Reported) Clonidine Hcl (Clonidine Hcl), 0.2 MG PO BID, (Reported) Hydralazine HCl (Hydralazine HCl), 1 TAB PO TID, (Reported) Hydroxychloroquine Sulfate* (Plaquenil*), 1 TAB PO DAILY, (Reported) Metoprolol Succinate (Metoprolol Succinate), 1 TAB PO DAILY, (Reported) Scheduled PRN Clonazepam (Clonazepam), 1 TAB PO BID PRN for neuropathy, (Reported) Miscellaneous Medications Albuterol Sulfate (Ventolin Hfa), (Reported) Sodium Zirconium Cyclosilicate (Lokelma), (Reported) Discontinued Medications Folic Acid/Vitamin B Comp W-C (Nephro-Luciano Tablet), 1 TAB PO AM, (Reported) Discontinued Reason: patient no longer taking Minoxidil* (Loniten*), 2 TAB PO BID, (Reported) Discontinued Reason: patient no longer taking Promethazine HCl (Promethazine HCl), 1 SUPP RC Q4H PRN for motion sickness, (Reported) Discontinued Reason: patient no longer taking Sacubitril/Valsartan (Entresto 49 mg-51 mg Tablet), 1 TABLET PO BID Discontinued Reason: patient no longer taking Past Medical History Past Medical History: Seizures, Congestive Heart Failure, Myocardial Infarction, Asthma, Dialysis, Diabetes, *CANCER* Past Surgical History: other Patient History: (Cancer) Malignant carcinoid tumor MOTHER, , Age: 60, Cause: Colon cancer, Onset:50's - 60 FH: alcohol abuse FATHER, , Age: 70, Cause: Lung cancer FH: stroke MOTHER, , Age: 60, Cause: Colon cancer Drug Use: none Lives In: Home Review of Systems All Other Systems at this time: Reviewed and Negative Respiratory: Reports: shortness of breath Cardiovascular: Denies: chest pain Gastrointestinal: Denies: abdominal pain Physical Exam Vital Signs: RN Vital Signs have been reviewed: Yes, Heart Rate: 84, Respiratory Rate: 18, BP: 136/82, Pulse Oximetry: 100, Weight: 48.000 Oxygen Flow Rate: 3.0 Physical Exam Arrives on CPAP no acute distress No JVD Awake alert oriented normal speech Lungs bibasilar crackles no respiratory distress Cardiac murmur present Abdomen is soft nontender Lower extremity no edema Progress Progress Note consulted Dr. Ramos, he will arrange for dialysis Results/Orders Results/Orders Orders - HENRI HOUGH MD Chest,Single View (01/03/25 10:21) Pep With Oscillation (01/03/25 ) Page Hospitalist (01/03/25 11:12) Fill Out Med Reconciliation (01/03/25 11:12) Completed Orders - HENRI HOUGH MD Cbc/Diff (01/03/25 10:21) BMP (01/03/25 10:21) Hs Troponin I W Calculations (01/03/25 10:21) Chest,Single View (01/03/25 10:21) Electrocardiogram (01/03/25 ) Vital Signs 01/03/25 01/03/25 01/03/25 01/03/25 10:22 10:32 11:25 11:35 Pulse 83 84 81 Resp 15 18 16 18 B/P (MAP) 136/82 99/67 (78) Pulse Ox 99 100 100 O2 Delivery Nasal Cannula* O2 Flow Rate 3.0 3 FiO2 32 Laboratory Tests Test 01/03/25 10:40 White Blood Count 9.7 Red Blood Count 3.83 L Hemoglobin 11.9 L Hematocrit 36.6 Mean Corpuscular Volume 95.4 Mean Corpuscular Hemoglobin 31.0 Mean Corpuscular Hemoglobin Concent 32.5 L Red Cell Distribution Width 16.6 H Platelet Count 102 L Mean Platelet Volume 7.9 Neutrophils (%) (Auto) 79.2 H Lymphocytes (%) (Auto) 8.3 L Monocytes (%) (Auto) 10.7 Eosinophils (%) (Auto) 0.8 Basophils (%) (Auto) 1.0 Neutrophils # (Auto) 7.7 Lymphocytes # (Auto) 0.8 L Monocytes # (Auto) 1.0 H Eosinophils # (Auto) 0.1 Basophils # (Auto) 0.1 CBC Comment Sodium Level 136 Potassium Level 4.5 Chloride Level 95 L Carbon Dioxide Level 31.4 Anion Gap 10 Blood Urea Nitrogen 53 H Creatinine 6.47 H Estimated GFR/1.73 m2 7 BUN/Creatinine Ratio 8.2 L Glucose Level 111 H Calcium Level 8.9 Troponin I High Sensitivity 257 *H Albumin 3.2 L Chemistry Comments EKG/XRAY/CT/US/VASC/MRI EKG : Additional Comment EKG independently interpreted by myself time 10:34 a.m. indication dyspnea. Sinus rhythm rate 75 normal axis QTC prolongation 533 LVH, anterior repolarization abnormalities present on prior Medical Decision Making Additional info obtained from: old records Findings PID status post bilateral CEA stents Catheterization October 27, 2024 no significant obstructive CAD Departure Disposition: 09 ADMITTED INPATIENT Admitted to Inpatient Unit: to hospitalist Impression: Primary Impression: End-stage renal disease Additional Impressions: Dyspnea Qualified Codes: R06.01 - Orthopnea Elevated troponin Referrals: NO PRIMARY CARE PROVIDER (PCP) Critical Care Note Total Time (mins): 30 Critical Care Note The very real possibility of a deterioration of this patient's condition required the highest level of my preparedness for sudden, emergent intervention. I provided critical care services, which included medication orders, frequent reevaluations of the patient's condition and response to treatment, ordering and reviewing test results, and discussing the case with various consultants. Excludes time spent performing separately billable procedures. The critical care time associated with the care of the patient was 30 minutes in the management of elevated troponin Signature Scribe Signature: na Attestation: HENRI Davidson MD Jan 03, 2025 11:18
[2025-01-03] MEDS ORDERED: mag hydrox/Alum hydrox/simeth 30ml oral suspension PO PRN (11:30)
[2025-01-03] MEDS ORDERED: ondansetron/PF 4mg/2ml inj IV PRN (11:30)
[2025-01-03] MEDS ORDERED: azithromycin/NS 500mg/250ml 250 ML IV SCH (11:30)
[2025-01-03] MEDS ORDERED: magnesium hydroxide 30ml (MOM) UD suspension PO PRN (11:30)
[2025-01-03] MEDS ORDERED: magnesium sulf-water 4G/100mL 100 ML IV PRN (11:30)
[2025-01-03] MEDS ORDERED: albuterol 2.5 MG/3 ML nebule NEB PRN (11:30)
[2025-01-03] MEDS ORDERED: potassium Cl 40MEQ/1/2NS 520ml 520 ML IV PRN (11:30)
[2025-01-03] MEDS ORDERED: potassium Cl 20 mEq SR tablet PO PRN ×2 (11:30)
[2025-01-03] MEDS ORDERED: magnesium sulf-water 2g/50mL 50 ML IV PRN (11:30)
[2025-01-03] MEDS ORDERED: magnesium Cl slow-release 64mg tablet PO PRN (11:30)
[2025-01-03] MEDS ORDERED: ipratropium/albuterol 3ml nebule NEB PRN (11:30)
[2025-01-03] MEDS: furosemide 10 MG/1 ML 10ml inj IV ONE (11:30)
[2025-01-03 12:23] LABS: APTT 27 SECONDS (22-32); INR 1.0 INR
[2025-01-03] MEDS: heparin 10,000 units/1 ML INJ IV ONE (12:54)
[2025-01-03] MEDS: heparin 25,000 UNIT/250ml bag 250 ML IV PRN (12:55)
[2025-01-03] MEDS: MESSAGE TO NURSING IV ONE (12:56)
[2025-01-03] MEDS: CefTRIAXone/D5W-Rocephin 1gm 50 ML IV SCH (13:11)
[2025-01-03 13:21] LABS: PRO BRAIN NATRIURETIC PEPTIDE > 30000 PG/ML (0-125)
[2025-01-03] MEDS: doxycycline 100mg/NS 100mL PB 100 ML IV SCH (13:34)
[2025-01-03] MEDS: HYDROcodone/acetaminophen 5mg/325mg tablet PO ONE (13:59)
[2025-01-03 17:19] LABS: ABG BASE EXCESS 0.3 mmol/L (-2.0-3.0); ABG HCO3 25.5 mmol/L (21.0-28.0); ABG OXYGEN SATURATION 99.3 % (94.0-98.0); ABG PCO2 (T) 43.3 mmHg (32.0-45.0); ABG PH (T) 7.388 (7.350-7.450); ABG PO2 (T) 113.1 mmHg (83.0-108.0); ALLEN'S TEST POSITIVE; FCOHb 3.2 % (0.5-1.5); FHHb 0.7 % (0.0-5.0); FIO2 28.0 mmHg/%; FLOW 2 L/min; FMetHb 0.2 % (0.0-1.5); FO2Hb 95.9 % (94.0-98.0); MODE NASAL CANNULA; PATIENT TEMPERATURE 37.0; TOTAL HEMOGLOBIN 11.6 G/dl (12.0-16.0)
--- NOTE | 2025-01-03 18:44 | CARDIOLOGY REPORT ---
APPROVED REPORT EXAM: Comprehensive 2D, Doppler, and color-flow Echocardiogram. Patient Location: ER 1 Blood Pressure: 98/56 mmHg Heart Rate: 70's bpm Rhythm: SINUS Indications CONGESTIVE HEART FAILURE ELEVATED PBNP, TROPONIN COPD SHORTNESS OF BREATH HYPERTENSION Shot Bagger: Elvia Banks MD Previous echo: [facility] 12-05-2013 EF 60-65%, trMR, mTR 2D Dimensions RVDd 4.1 cm LA Diam 4.3 cm IVSd 1.0 (0.7-1.1cm) LVDd 4.5 cm PWd 1.0 (0.7-1.1cm) IVSs 1.3 (0.8-1.2cm) LVDs 3.1 (2.5-4.0cm) PWs 1.2 (0.8-1.2cm) LVOT Diameter 1.90 (1.8-2.4cm) LVEF(%) 57.2 (>50%) IVC 18.67 mm FS (%) 29.9 % SV 52.3 ml CO 4.0 L/min M-Mode Dimensions Aortic Root 2.20 (2.2-3.7cm) MV EPSS 0.6 (<0.5cm) Aortic Valve AoV Peak Skyler. 303.2 cm/s AoV VTI 49.2 cm AO Peak GR. 36.8 mmHg AO Mean GR. 20 mmHg LVOT VTI 25.14 cm LVOT Peak Skyler. 123.9 cm/s ORIN(VTI)/BSA 1.29 cm2/m2 ORIN (VTI) 1.29 cm2 AV DI 0.51 % Mitral Valve MV E Velocity 119.7 cm/s MV Peak Gr. 6 mmHg MV DECEL TIME 252 ms MV A Velocity 78.2 cm/s MV PHT 64 ms E/A Ratio 1.5 MVA (PHT) 3.44 cm2 MV VMax 122.9 cm/s TDI Lateral E' P. V 5.86 cm/s E/Lateral E' 20.4 Tricuspid Valve TR P. Velocity 281 cm/s RAP ESTIMATE 10 mmHg TR Peak Gr. 32 mmHg RVSP 42 mmHg LEFT VENTRICLE Normal LV size and wall thickness. Overall systolic function is mildly reduced. LVEF is 50-55%. RIGHT VENTRICLE RV is normal size and function. Elevated right heart pressures with an RVSP of 42 mmHg. ATRIA The left atrium size is normal. AORTIC VALVE Probable trileaflet AV appears moderately sclerotic with moderate stenosis. ORIN: 1.29 cmsq; Pkv: 303 cm/sec; Gradients: 37/20 mmHG. Mild insufficiency. MITRAL VALVE Mild MV annular calcification without stenosis. Trace regurgitation. TRICUSPID VALVE TV appears structurally normal with mild regurgitation. GREAT VESSELS The aortic root is normal in size. IVC is normal in size and collapses greater than 50% with inspiration. PERICARDIUM Normal pericardium. No effusion. Other Information Study Quality: Adequate Conclusion Normal LV size and wall thickness. Overall systolic function is mildly reduced. LVEF is 50-55%. RV is normal size and function. Elevated right heart pressures with an RVSP of 42 mmHg. The left atrium size is normal. Probable trileaflet AV appears moderately sclerotic with moderate stenosis. ORIN: 1.29 cmsq; Pkv: 303 cm/sec; Gradients: 37/20 mmHG. Mild insufficiency. Mild MV annular calcification without stenosis. Trace regurgitation. TV appears structurally normal with mild regurgitation. Normal pericardium. No effusion.
--- NOTE | 2025-01-03 18:52 | HISTORY AND PHYSICAL-Residence ---
History & Physical Providers to CC Resident Creating Document: CARRINGTON ALBERTO, RES ~ History of Present Illness Primary Medical Doctor: Hospitalist/Residency Service Reason for Admit\Complaint: Shortness of breath, transferred History of Present Illness A 59-year-old female with past medical history of SLE, lupus nephritis, peripheral arterial disease, history of heavy tobacco use, ESRD on dialysis, HTN, CHF presented to the ED in view of worsening shortness of breaths and chest pressure since 2:00 a.m. this morning. Patient stated that her shortness of breath woke her up from the sleep. The chest pain was associated with sweating profusely. She took clonidine and 2 hours later she took Entresto and clonazepam, Tylenol but none of those relieved her shortness of breath. She checked her oxygen saturation was 80% on 2 L, 65% on room air. She does have home oxygen but she does not use it frequently and mostly uses a during night while sleeping. Patient also endorses orthopnea, PND. She went to [facility] and then was later transferred here. She was given six doses of nitro at [facility]. She was also placed on CPAP and then BiPAP. Her blood pressure was found to be [id number] at [facility] with a heart rate of 116 and respiratory rate of 30. She has a trim crew supervisor outpatient and she was started on Entresto, metoprolol for her heart failure. She was also provided with LifeVest however, she was not wearing it on arrival because she felt she was not able to breathe because of the LifeVest. ED course at [facility]: [place] [address], mild thrombocytopenia with platelets 123k, lactic acid 3.7, BNP greater than 5000 and troponin of 130, a significantly elevated creatinine 6.08. Patient was transferred for suspected demand ischemia versus ACS. ED course at [facility]: She goes for dialysis on Saturday, Saturday, Saturday. On-call automobile club membership sales agent was consulted by the ED physician. EKG at our facility showed T- wave inversions and prolonged QT but compared to previous EKGs she has always had T-wave inversion, patient was also started on heparin drip for suspected NSTEMI. Allergies: Coded Allergies: Penicillins (Verified Allergy, Mild, 12/04/13) mom told her she had one as a child. Home Medications Home Medications Active Reported Lokelma (Sodium Zirconium Cyclosilicate) 10 Gram Powd.pack Hydralazine HCl 50 Mg Tablet 1 Tab PO TID Metoprolol Succinate 25 Mg Tab.sr.24h 1 Tab PO DAILY Plaquenil* (Hydroxychloroquine Sulfate) 200 Mg Tablet 1 Tab PO DAILY Ventolin Hfa (Albuterol Sulfate) 90 Mcg Hfa.aer.ad Clonazepam 0.5 Mg Tablet 1 Tab PO BID PRN PhosLo tablet (Calcium Acetate) 667 Mg Tablet 3 Tab PO EACH MEAL Clonidine Hcl 0.2 Mg Tablet 0.2 Mg PO BID Past Medical History Past Medical History HTN CHF ESRD on hemodialysis Adjustment disorder with depressive mood Lupus COPD PAD status post graft and stent placed in the abdominal aorta and the lower extremities Rheumatoid arthritis Carpal tunnel syndrome COPD Family History Family History: (Cancer) Malignant carcinoid tumor MOTHER, , Age: 60, Cause: Colon cancer, Onset:50's - 60 FH: alcohol abuse FATHER, , Age: 70, Cause: Lung cancer FH: stroke MOTHER, , Age: 60, Cause: Colon cancer Past Social History Social History Comment Right nephrectomy secondary to multiple stones Left kidney defect with repair Carpal tunnel surgery Abortions and miscarriages Smoking: Quit greater than 1 year Drug Use: None Lives In: Home ROS All Other Systems: Reviewed and Negative ROS Patient was occasional alcohol consumption but quit 35 years ago Smokes marijuana Does not consume drugs Quit smoking 14 years ago Lives at home with boyfriend Primary care: [facility] Dr. Duque Nephrology Dr. Starr Respiratory: Reports: shortness of breath Cardiovascular: Denies: chest pain Gastrointestinal: Denies: abdominal pain Exam Vitals: Vital Signs Date Time Temp Pulse Resp B/P (MAP) Pulse Ox O2 Delivery O2 Flow Rate FiO2 01/03/25 17:50 Nasal Cannula 1.0 01/03/25 15:00 98.1 75 18 118/62 (80) 98 01/03/25 12:35 28 General: General: Alert, awake, oriented, not in acute distress , currently on 2 L oxygen with nasal cannula HEENT: PERRLA, no icterus, pallor, lymphadenopathy, carotid bruit Respiratory system: Bilateral vesicular breath sounds heard, no adventitious breath sounds CVS: S1-S2 heard, grade 3/6 systolic ejection click murmur present in the aortic and pulmonary area with radiation to the mitral area GI: Soft, nontender, no organomegaly, no guarding/rigidity, bowel sounds present Neuro: No focal neurological deficits present Extremities: AV fistula in the right hand, no edema, cyanosis Skin: Warm and dry, flushing and dilated veins present in the collar region on the chest Diagnostic Data Last Recorded Lab Results: 01/03/25 1040 01/03/25 1040 Diagnostic Data: Laboratory Tests Test 01/03/25 12:01 Prothrombin Time 10.6 SECONDS (9.0-12.0) INR International Normalized Ratio 1.0 INR Activated Partial Thromboplast Time 27 SECONDS (22-32) Coagulation Comments Advance Care Planning Advanced Care plannin - 30 Minutes (I spent a total of 17 minutes on reviewing various resuscitative measures/ ACP with the patient at the time of admission. The patient has decided on a full code status) Additional Plan Acute hypoxemic respiratory failure secondary to COPD exacerbation versus heart failure Acute on chronic heart failure, with preserved ejection fraction ACC/AHA: Stage C, NYHA: Class III Chronically elevated proBNP, 2/2 ESRD & CHF Chest x-ray: Compared to previous exam faint bilateral infiltrates One dose of Lasix 60 mg given followed by IV Lasix 40 mg daily scheduled Strict Is&Os Optimization with GDMT: Metoprolol succinate 25 mg, Entresto NSTEMI, can not rule out ACS EKG: T-wave depressions, ST changes in multiple leads, Elevated troponins, downtrending. 241, 215 Started on IV heparin drip, continue aspirin 81 mg, statin, beta-gustabo Sublingual nitroglycerin 0.4 mg p.r.n. for chest pain Optimization with GDM T: Metoprolol succinate 25 mg, Entresto Echocardiogram showed Overall systolic function is mildly reduced. LVEF is 50- 55%. RV is normal size and function. Elevated right heart pressures with an RVSP of 42 mmHg. Echo from 2013 revealed EF of 60-65% Cardiology consult in a.m. if troponins are up trending ESRD on dialysis (M, W, F) Elevated BUN and creatinine Consulted with Nephrology. Recommendations appreciated Bibasilar opacity suspicious for community-acquired pneumonia, covering Gram- positive, Gram-negative bacteria lactic acidosis resolved Suspicious chest x-ray finding for pneumonia Empirically started with the patient on IV Rocephin , doxycycline in view of prolonged QT avoid azithromycin Procalcitonin is elevated at 4.89 One time IV fluids at 50 cc/hour while monitoring for fluid overload DuoNeb q.4h scheduled and albuterol q.2h p.r.n. HTN Currently normotensive, continue metoprolol History of Lupus Rheumatoid arthritis Continue hydroxychloroquine 200 mg p.o. daily PAD status post graft and stent placed in the abdominal aorta and the lower extremities Continue aspirin Adjustment disorder with depressive mood Anxiety disorder Hold clonazepam for now Code status: Full code Diet: Renal diet Anticoagulation: Heparin drip Disposition: Admit to PCU, in nephrology consult in a.m., dialysis tomorrow Carrington Matos MD Internal Medicine, PGY 2 Date of Service: Jan 03, 2025 Billing Provider: COURTNEY YEH MD Common Visit Codes: [id number] INP/OBS CARE (HIGH) Secondary Visit Codes: [id number] CARE PLAN 30 MINUTES CARRINGTON ALBERTO, RES Jan 03, 2025 18:52 COURTNEY YEH MD Jan 04, 2025 17:45
[2025-01-03] MEDS: docusate sod 100mg capsule PO SCH (20:00)
[2025-01-03] MEDS ORDERED: heparin, porcine 5000 units/ml vial SQ SCH (20:00)
[2025-01-03] MEDS: K and/or MAG REPLACEMENT MC SCH (20:00)
[2025-01-03] MEDS: HYDROcodone/acetaminophen 5mg/325mg tablet PO PRN (21:31)
[2025-01-04] VITALS (14 sets, daily range): BP systolic 156–201; BP diastolic 76–107; PULSE 72–89; RESP 14–22; TEMP 98.1–99.1; O2SAT 94–100
[2025-01-04] MEDS ORDERED: heparin 25,000 UNIT/250ml bag 250 ML IV PRN ×2 (01:25→01:35)
[2025-01-04] MEDS: heparin 10,000 units/1 ML INJ IV PRN (01:50)
[2025-01-04] MEDS: MESSAGE TO NURSING IV ONE ×4 (01:53→16:47)
[2025-01-04] MEDS: labetalol 20mg/4ml (5mg/ml) syringe IV ONE (07:16)
[2025-01-04] MEDS ORDERED: normal saline 1000ml 100 ML IV PRN (08:10)
[2025-01-04] MEDS: EPOETIN ALFA-EPBX 20,000 UNIT/ML 1 ML MDV IV ONE (08:10)
[2025-01-04] MEDS: LIDOcaine 1% (10mg/ml) 2ml vial SQ ONE (08:29)
[2025-01-04 08:46] LABS: MEAN PLATELET VOLUME 9.0 FL (7.4-10.4); RED CELL DISTRIBUTION WIDTH 16.3 % (11.5-14.5)
[2025-01-04] MEDS: hydrALAZINE 20mg/ml inj. IV ONE (09:00)
[2025-01-04 09:08] LABS: CREATININE 7.80 MG/DL (0.40-0.90); TOTAL CARBON DIOXIDE 24.2 MMOL/L (24-32); eCRCL 6 ML/MIN; eGFR 5 ML/MIN
--- NOTE | 2025-01-04 10:08 | CONSULTATION REPORT - RESIDENT ---
Consult Providers to CC Resident Creating Document: RACHEL EVANS RES History of Present Illness Reason for Admit\Complaint: Shortness of breadth History of Present Illness A 59-year-old female with past medical history of SLE, lupus nephritis, history of right nephrectomy, ESRD on dialysis(Saturday, , Saturday), peripheral arterial disease, history of heavy tobacco use, HTN, CHF presented to the ED in view of worsening shortness of breaths and chest pressure since 2:00 a.m. this morning. She was admitted for acute hypoxemic respiratory failure secondary to COPD exacerbation, CHF exacerbation, possible pneumonia. Also has a up trending troponins with a suspicion of ACS, cardiology consultation pending. Nephrology team has been consulted for ESRD. She has a history of right nephrectomy at the age of 24. Has been on dialysis since 11 years. She gets dialysis on Saturday, , Saturday at [facility]. Dialysis port-AV fistula at right arm. She does not have any residual renal function, no urine output. Allergies: Coded Allergies: Penicillins (Verified Allergy, Mild, 12/04/13) mom told her she had one as a child. Home Medications Home Medications Active Reported Lokelma (Sodium Zirconium Cyclosilicate) 10 Gram Powd.pack Hydralazine HCl 50 Mg Tablet 1 Tab PO TID Metoprolol Succinate 25 Mg Tab.sr.24h 1 Tab PO DAILY Plaquenil* (Hydroxychloroquine Sulfate) 200 Mg Tablet 1 Tab PO DAILY Ventolin Hfa (Albuterol Sulfate) 90 Mcg Hfa.aer.ad Clonazepam 0.5 Mg Tablet 1 Tab PO BID PRN PhosLo tablet (Calcium Acetate) 667 Mg Tablet 3 Tab PO EACH MEAL Clonidine Hcl 0.2 Mg Tablet 0.2 Mg PO BID Past Medical History Past Medical History HTN CHF ESRD on hemodialysis Adjustment disorder with depressive mood Lupus COPD PAD status post graft and stent placed in the abdominal aorta and the lower extremities Rheumatoid arthritis Carpal tunnel syndrome COPD Past Surgical History Surgical History Comment Right nephrectomy secondary to multiple stones Left kidney defect with repair Carpal tunnel surgery Abortions and miscarriages Family History Family History: (Cancer) Malignant carcinoid tumor MOTHER, , Age: 60, Cause: Colon cancer, Onset:50's - 60 FH: alcohol abuse FATHER, , Age: 70, Cause: Lung cancer FH: stroke MOTHER, , Age: 60, Cause: Colon cancer Past Social History Social History Comment Patient was occasional alcohol consumption but quit 35 years ago Smokes marijuana Does not consume drugs Quit smoking 14 years ago Lives at home with boyfriend Primary care: [facility] Dr. Duque Nephrology Dr. Matty CERON ROS All negative except in HPI. Exam Vitals: Vital Signs Date Time Temp Pulse Resp B/P (MAP) Pulse Ox O2 Delivery O2 Flow Rate FiO2 01/04/25 09:35 89 16 175/88 (117) 96 Room Air 01/04/25 08:35 98.5 01/04/25 08:03 0 21 General: General: Alert, awake, oriented, not in acute distress , currently on 2 L oxygen with nasal cannula HEENT: PERRLA, no icterus, pallor, lymphadenopathy, carotid bruit Respiratory system: Bilateral vesicular breath sounds heard, no adventitious breath sounds CVS: S1-S2 heard, grade 3/6 systolic ejection click murmur present in the aortic and pulmonary area with radiation to the mitral area GI: Soft, nontender, no organomegaly, no guarding/rigidity, bowel sounds present Neuro: No focal neurological deficits present Extremities: AV fistula in the right hand, no edema, cyanosis Skin: Warm and dry, flushing and dilated veins present in the collar region on the chest Diagnostic Data Last Recorded Lab Results: 01/04/25 0724 01/04/25 0724 Diagnostic Data: Laboratory Tests Test 01/03/25 12:01 01/04/25 07:24 Prothrombin Time 10.6 SECONDS (9.0-12.0) INR International Normalized Ratio 1.0 INR Activated Partial Thromboplast Time 27 SECONDS (22-32) APTT (Heparin Protocol) 74 SECONDS (45-60) H Coagulation Comments Additional Plan Assessment A 59-year-old female with past medical history of SLE, lupus nephritis, history of right nephrectomy, ESRD on dialysis(Saturday, , Saturday), peripheral arterial disease, history of heavy tobacco use, HTN, CHF presented to the ED in view of worsening shortness of breaths and chest pressure since 2:00 a.m. this morning. She was admitted for acute hypoxemic respiratory failure secondary to COPD exacerbation, CHF exacerbation, possible pneumonia. Also has a up trending troponins with a suspicion of ACS, cardiology consultation pending. Nephrology team has been consulted for ESRD. She has a history of right nephrectomy at the age of 24. Has been on dialysis since 11 years. She gets dialysis on Saturday, Saturday, Saturday at [facility]. Dialysis port-AV fistula at right arm. She does not have any residual renal function, no urine output. She mentioned that she has regular on her dialysis schedule. Last dialysis was on Saturday. Plan ESRD on HD(Sat, Sat, sat) History of right nephrectomy History of lupus nephritis HD today Creatinine 7.8, BUN 66 Monitor for symptoms of fluid overload, hyperkalemia, and uremic encephalopathy. Check post-dialysis labs (electrolytes, BUN, creatinine). Review and adjust medications for renal dosing as needed. Avoid nephrotoxin agents Avoid [place], morphine for pain management Strict I&Os Renal diet Plan HD Duration-3 hours Potassium-took about calcium 2.5 Electrolyte abnormalities Hyperkalemia , Hyponatremia Potassium this morning 6.3, sodium 134 Dialysis with 2K bath Started on Lokelma 10 g daily Phosphorus levels, PTH ordered Continued patient's home medication PhosLo t.i.d.. Anemia of CKD Hemoglobin 11.4 Erythropoietin stimulating agent if necessary. Hypertension Patient blood pressure is elevated after the dialysis. Continue patient's home medication hydralazine, metoprolol succinate, clonidine Acute hypoxemic respiratory failure COPD exacerbation CHF exacerbation Possible Pneumonia Lasix 40 mg IV daily Optimization with GDMT: Metoprolol succinate 25 mg, Entresto Empiric antibiotics-ceftriaxone and doxycycline Methylprednisolone NSTEMI, can not rule out ACS EKG: T-wave depressions, ST changes in multiple leads, Currently on IV heparin drip, aspirin, statin, beta gustabo. Echocardiogram showed Overall systolic function is mildly reduced. LVEF is 50- 55%. Follow up with Cardiology History of Lupus Rheumatoid arthritis Continue hydroxychloroquine 200 mg p.o. daily PAD status post graft and stent placed in the abdominal aorta and the lower extremities Continue aspirin Adjustment disorder with depressive mood Anxiety disorder Hold clonazepam for now Rachel Evans M.D PGY2 Nephrology Resident. Sepsis Screening Skin Color: Normal Date of Service: Jan 04, 2025 Billing Provider: DEACON KIM III, PRAVAHIKA, RES Jan 04, 2025 10:08
[2025-01-04] MEDS: metoprolol succinate 25mg (24-HOUR) SR. Tablet PO SCH (10:31)
[2025-01-04] MEDS ORDERED: CALCIUM ACETATE 667 MG PO SCH (12:15)
[2025-01-04] MEDS: methylPREDNISolone sod succ/PF 40mg inj. IV SCH (12:25)
[2025-01-04] MEDS ORDERED: MYCO500T5 PO (12:52)
[2025-01-04] MEDS: SODIUM ZIRCONIUM CYCLOSILICATE 10 GM POWD.PACK PO SCH (14:33)
[2025-01-04 15:35] LABS: CREATININE 4.59 MG/DL (0.40-0.90); PHOSPHORUS 3.9 MG/DL (2.3-4.5); TOTAL CARBON DIOXIDE 30.3 MMOL/L (24-32); eCRCL 10 ML/MIN; eGFR 10 ML/MIN
--- NOTE | 2025-01-04 18:09 | PROGRESS NOTE- Residence ---
Progress Note - Resident Providers to CC Resident Creating Document: CARRINGTON ALBERTO, DAWSON ~ Antibiotic Timeout Antibiotic Ordered?: Yes Subjective Patient was seen and examined at the bedside. She denied any chest pain. She was undergoing dialysis. Patient has her life brought from home. Patient had persistently high blood pressures and her home medications clonidine was restarted along with IV hydralazine as needed. Objective Vital Signs Date Time Temp Pulse Resp B/P (MAP) Pulse Ox O2 Delivery O2 Flow Rate FiO2 01/04/25 15:00 98.1 80 20 156/87 (110) 97 Room Air 0.0 01/04/25 08:03 21 Result Diagram: 01/04/25 0724 01/04/25 1503 General: Alert, awake, oriented, not in acute distress , frail appearing woman HEENT: PERRLA, no icterus, pallor, lymphadenopathy, carotid bruit Respiratory system: Bilateral vesicular breath sounds heard, no adventitious breath sounds CVS: S1-S2 heard, grade 3/6 systolic ejection click murmur present in the aortic and pulmonary area with radiation to the mitral area GI: Soft, nontender, no organomegaly, no guarding/rigidity, bowel sounds present Neuro: No focal neurological deficits present Extremities: AV fistula in the right hand, no edema, cyanosis Skin: Warm and dry, flushing and dilated veins present in the collar region on the chest Coagulation Studies Laboratory Tests Test 01/03/25 12:01 01/04/25 15:03 Prothrombin Time 10.6 SECONDS (9.0-12.0) INR International Normalized Ratio 1.0 INR Activated Partial Thromboplast Time 27 SECONDS (22-32) APTT (Heparin Protocol) 50 SECONDS (45-60) Coagulation Comments Assessment Assessment A 59-year-old female with past medical history of SLE, lupus nephritis, peripheral arterial disease, history of heavy tobacco use, ESRD on dialysis, HTN, CHF presented to the ED in view of worsening shortness of breaths and chest pressure since 2:00 a.m. this morning. Patient stated that her shortness of breath woke her up from the sleep. The chest pain was associated with sweating profusely. She took clonidine and 2 hours later she took Entresto and clonazepam, Tylenol but none of those relieved her shortness of breath. She checked her oxygen saturation was 80% on 2 L, 65% on room air. She does have home oxygen but she does not use it frequently and mostly uses a during night while sleeping. Patient also endorses orthopnea, PND. She went to [facility] and then was later transferred here. She was given six doses of nitro at [place]. She was also placed on CPAP and then BiPAP. Her blood pressure was found to be [id number] at [place] [facility] with a heart rate of 116 and respiratory rate of 30. She has a yeast washer outpatient and she was started on Entresto, metoprolol for her heart failure. She was also provided with LifeVest however, she was not wearing it on arrival because she felt she was not able to breathe because of the LifeVest. ED course at [place]: [place] [address], mild thrombocytopenia with platelets 123k, lactic acid 3.7, BNP greater than 5000 and troponin of 130, a significantly elevated creatinine 6.08. Patient was transferred for suspected demand ischemia versus ACS. ED course at [facility]: She goes for dialysis on Saturday, Saturday, Saturday. On-call gut carrier was consulted by the ED physician. EKG at our facility showed T- wave inversions and prolonged QT but compared to previous EKGs she has always had T-wave inversion, patient was also started on heparin drip for suspected NSTEMI. Plan Plan Acute hypoxemic respiratory failure secondary to heart failure exacerbation Acute on chronic heart failure, with preserved ejection fraction ACC/AHA: Stage C, NYHA: Class III Chronically elevated proBNP, 2/2 ESRD & CHF Chest x-ray: Compared to previous exam faint bilateral infiltrates One dose of Lasix 60 mg given followed by IV Lasix 40 mg daily scheduled Strict Is&Os Optimization with GDMT: Metoprolol succinate 25 mg, Entresto Chest pain, troponinemia, ACS ruled out EKG: T-wave depressions, ST changes in multiple leads, unchanged from old EKGs Elevated troponins, downtrending. 241, 215 Started on IV heparin drip, continue aspirin 81 mg, statin, beta-gustabo . IV heparin drip was stopped after 24 hours. Sublingual nitroglycerin 0.4 mg p.r.n. for chest pain Optimization with GDM T: Metoprolol succinate 25 mg, Entresto Echocardiogram showed Overall systolic function is mildly reduced. LVEF is 50- 55%. RV is normal size and function. Elevated right heart pressures with an RVSP of 42 mmHg. Echo from 2013 revealed EF of 60-65% Cardiology consult in a.m. if troponins are up trending, however troponins are down trending ESRD on dialysis (M, W, F) Elevated BUN and creatinine Consulted with Nephrology. Recommendations appreciated. Patient underwent dialysis on Saturday inpatient. Nephrology team is managing hypokalemia, hyperphosphatemia and anemia of chronic disease Bibasilar opacity suspicious for community-acquired pneumonia, covering Gram- positive, Gram-negative bacteria lactic acidosis resolved Suspicious chest x-ray finding for pneumonia Empirically started with the patient on IV Rocephin , doxycycline in view of prolonged QT avoid azithromycin Procalcitonin is elevated at 4.89 One time IV fluids at 50 cc/hour while monitoring for fluid overload DuoNeb q.4h scheduled and albuterol q.2h p.r.n. HTN Currently normotensive, continue metoprolol History of Lupus Rheumatoid arthritis Continue hydroxychloroquine 200 mg p.o. daily PAD status post graft and stent placed in the abdominal aorta and the lower extremities Continue aspirin Adjustment disorder with depressive mood Anxiety disorder Continue clonazepam Code status: Full code Diet: Renal diet Anticoagulation: SCDs Disposition: Anticipated discharge tomorrow Carrington Matos MD Internal Medicine, PGY 2 Date of Service: Jan 04, 2025 Billing Provider: COURTNEY YEH MD Common Visit Codes: [id number] INP/OBS CARE(HIGH) CARRINGTON ALBERTO, RES Jan 04, 2025 18:09 COURTNEY YEH MD Jan 04, 2025 18:40
[2025-01-04] MEDS: calcium acetate 667mg (PhosLO) capsule PO SCH (18:51)
[2025-01-05] VITALS (7 sets, daily range): BP systolic 173–187; BP diastolic 77–87; PULSE 64–94; RESP 15–19; TEMP 98–98.4; O2SAT 95–98
[2025-01-05] MEDS: hydrALAZINE 20mg/ml inj. IV PRN (05:29)
[2025-01-05 07:20] LABS: HBSAG SCREEN Negative (Negative)
[2025-01-05 09:46] LABS: MEAN PLATELET VOLUME 8.5 FL (7.4-10.4); RED CELL DISTRIBUTION WIDTH 15.9 % (11.5-14.5)
[2025-01-05 10:08] LABS: CREATININE 6.12 MG/DL (0.40-0.90); PHOSPHORUS 6.0 MG/DL (2.3-4.5); TOTAL CARBON DIOXIDE 25.4 MMOL/L (24-32); eCRCL 7 ML/MIN; eGFR 7 ML/MIN
--- NOTE | 2025-01-05 11:33 | PROGRESS NOTE- Residence ---
Progress Note - Resident Providers to CC Resident Creating Document: JUSTINA HIGH RES ~ Antibiotic Timeout Antibiotic Ordered?: No Subjective Patient was seen and examined at the bedside. She reported that she was doing well compared to yesterday. She had dialysis yesterday. Patient is getting discharged today. She has a LifeVest she brought from home, previously had low ejection fraction, currently ejection fraction improved to 50%, she will follow up with the web coordinator outpatient. Objective Vital Signs Date Time Temp Pulse Resp B/P (MAP) Pulse Ox O2 Delivery O2 Flow Rate FiO2 01/05/25 08:58 94 01/05/25 04:00 98.0 18 175/87 (116) 98 Room Air 01/05/25 03:27 0 21 Result Diagram: 01/05/25 0854 01/05/25 0854 General: Alert, awake, oriented, not in acute distress , frail appearing woman HEENT: PERRLA, no icterus, pallor, lymphadenopathy, carotid bruit Respiratory system: Bilateral vesicular breath sounds heard, no adventitious breath sounds CVS: S1-S2 heard, grade 3/6 systolic ejection click murmur present in the aortic and pulmonary area with radiation to the mitral area GI: Soft, nontender, no organomegaly, no guarding/rigidity, bowel sounds present Neuro: No focal neurological deficits present Extremities: AV fistula in the right hand, no edema, cyanosis Skin: Warm and dry, flushing and dilated veins present in the collar region on the chest Coagulation Studies Laboratory Tests Test 01/03/25 12:01 01/04/25 21:03 Prothrombin Time 10.6 SECONDS (9.0-12.0) INR International Normalized Ratio 1.0 INR Activated Partial Thromboplast Time 27 SECONDS (22-32) APTT (Heparin Protocol) 26 SECONDS (45-60) L Coagulation Comments Plan Plan Assessment A 59-year-old female with past medical history of SLE, lupus nephritis, history of right nephrectomy, ESRD on dialysis, peripheral arterial disease, history of heavy tobacco use, HTN, CHF presented to the ED in view of worsening shortness of breaths and chest pressure since 2:00 a.m. this morning. She was admitted for acute hypoxemic respiratory failure secondary to COPD exacerbation, CHF exacerbation, possible pneumonia. Also has a up trending troponins with a suspicion of ACS, cardiology consultation pending. Nephrology team has been consulted for ESRD. She has a history of right nephrectomy at the age of 24. Has been on dialysis since 11 years. She gets dialysis on Saturday, Saturday, Saturday at [facility] [place]. Dialysis port-AV fistula at right arm. She does not have any residual renal function, no urine output. She mentioned that she has regular on her dialysis schedule. Last dialysis was on Saturday. Plan ESRD on HD(Sat, Sat, sat) History of right nephrectomy History of lupus nephritis HD today Creatinine 6.12, BUN 50 Monitor for symptoms of fluid overload, hyperkalemia, and uremic encephalopathy. Review and adjust medications for renal dosing as needed. Avoid nephrotoxin agents Avoid Bozrah, morphine for pain management Strict I&Os Renal diet Electrolyte abnormalities Hyperkalemia , Hyponatremia-improved Potassium this morning 5.1, sodium 136 Started on Lokelma 10 g daily, discharged with Lokelma Phosphorus 6.0, PTH ordered Continued patient's home medication PhosLo t.i.d.. Anemia of CKD Hemoglobin 11.4 Erythropoietin stimulating agent if necessary. Hypertension Patient blood pressure is elevated after the dialysis. Continue patient's home medication hydralazine, metoprolol succinate, clonidine Acute hypoxemic respiratory failure COPD exacerbation CHF exacerbation Possible Pneumonia Lasix 40 mg IV daily Optimization with GDMT: Metoprolol succinate 25 mg, Entresto Empiric antibiotics-ceftriaxone and doxycycline Methylprednisolone NSTEMI, can not rule out ACS EKG: T-wave depressions, ST changes in multiple leads, Currently on IV heparin drip, aspirin, statin, beta gustabo. Echocardiogram showed Overall systolic function is mildly reduced. LVEF is 50- 55%. Follow up with Cardiology outpatient History of Lupus Rheumatoid arthritis Continue hydroxychloroquine 200 mg p.o. daily PAD status post graft and stent placed in the abdominal aorta and the lower extremities Continue aspirin Adjustment disorder with depressive mood Anxiety disorder Hold clonazepam for now Justina High M.D PGY2 Nephrology Resident. Date of Service: Jan 05, 2025 Billing Provider: DEACON KIM III, PRAVAHIKA, RES Jan 05, 2025 11:33
[2025-01-05] MEDS ORDERED: NOR5T PO (12:04)
--- NOTE | 2025-01-05 17:14 | DISCHARGE SUMMARY-Residence ---
Discharge Summary Providers to CC Resident Creating Document: CARRINGTON ALBERTO RODRIGO, RES ~ Discharge Summary Admission Diagnosis: SOB Hospital Course DATE OF ADMISSION: 01/03/2025 DATE OF DISCHARGE: 01/05/2025 Discharge Diagnosis\Comment: Acute hypoxemic respiratory failure secondary to heart failure exacerbation Acute on chronic heart failure, with preserved ejection fraction ACC/AHA: Stage C, NYHA: Class III Chest pain, troponinemia, likely type 2 [place], ACS ruled out ESRD on dialysis (M, W, F) Bibasilar opacity suspicious for community-acquired pneumonia, covering Gram- positive, Gram-negative bacteria lactic acidosis resolved HTN History of Lupus Rheumatoid arthritis PAD status post graft and stent placed in the abdominal aorta and the lower extremities Adjustment disorder with depressive mood Anxiety disorder Operations\Procedures: None Consultants: Dr. culp Complications: None Condition on DC: Stable New Medications: Amlodipine Besylate (Amlodipine Besylate) 5 Mg Tablet 10 MG PO DAILY for 30 Days, #60 TAB 0 Refills Continued Medications: Albuterol Sulfate (Ventolin Hfa) 90 Mcg Hfa.aer.ad Calcium Acetate (PhosLo tablet) 667 Mg Tablet 3 TAB PO EACH MEAL Clonazepam (Clonazepam) 0.5 Mg Tablet 1 TAB PO BID PRN for neuropathy Clonidine Hcl (Clonidine Hcl) 0.2 Mg Tablet 0.2 MG PO BID, TAB Hydralazine HCl (Hydralazine HCl) 50 Mg Tablet 1 TAB PO TID Hydroxychloroquine Sulfate* (Plaquenil*) 200 Mg Tablet 1 TAB PO DAILY Metoprolol Succinate (Metoprolol Succinate) 25 Mg Tab.sr.24h 1 TAB PO DAILY Mycophenolate Mofetil (Mycophenolate Mofetil) 500 Mg Tablet 1 TAB PO Q12H for 30 Days, #60 TAB 0 Refills Sodium Zirconium Cyclosilicate (Lokelma) 10 Gram Powd.pack Discharge Summary: History of present illness: A 59-year-old female with past medical history of SLE, lupus nephritis, peripheral arterial disease, history of heavy tobacco use, ESRD on dialysis, HTN, CHF presented to the ED in view of worsening shortness of breaths and chest pressure since 2:00 a.m. this morning. Patient stated that her shortness of breath woke her up from the sleep. The chest pain was associated with sweating profusely. She took clonidine and 2 hours later she took Entresto and clonazepam, Tylenol but none of those relieved her shortness of breath. She checked her oxygen saturation was 80% on 2 L, 65% on room air. She does have home oxygen but she does not use it frequently and mostly uses a during night while sleeping. Patient also endorses orthopnea, PND. She went to [facility] and then was later transferred here. She was given six doses of nitro at [place]. She was also placed on CPAP and then BiPAP. Her blood pressure was found to be [id number] at [place] [facility] with a heart rate of 116 and respiratory rate of 30. She has a bench assembly inspector outpatient and she was started on Entresto, metoprolol for her heart failure. She was also provided with LifeVest however, she was not wearing it on arrival because she felt she was not able to breathe because of the LifeVest. ED course at [place]: [place] [address], mild thrombocytopenia with platelets 123k, lactic acid 3.7, BNP greater than 5000 and troponin of 130, a significantly elevated creatinine 6.08. Patient was transferred for suspected demand ischemia versus ACS. ED course at [facility]: She goes for dialysis on Saturday, Saturday, Saturday. On-call home appliance tech was consulted by the ED physician. EKG at our facility showed T-wave inversions and prolonged QT but compared to previous EKGs she has always had T-wave inversion, patient was also started on heparin drip for suspected NSTEMI. Hospital course: Patient was admitted for Acute hypoxemic respiratory failure secondary to heart failure exacerbation, ACC/AHA: Stage C, NYHA: Class III, Chest x-ray: Compared to previous exam faint bilateral infiltrates. One dose of Lasix 60 mg given followed by IV Lasix 40 mg daily scheduled, Optimization with GDMT: Metoprolol succinate 25 mg, Entresto. EKG showed T-wave depressions, ST changes in multiple leads, unchanged from old EKGs, Elevated troponins, downtrending. 241, 215 likely type 2 TX. Started on IV heparin drip for 24 hours, continue aspirin 81 mg, statin, beta-gustabo . IV heparin drip was stopped after 24 hours. Sublingual nitroglycerin 0.4 mg p.r.n. for chest pain Optimization with GDM T: Metoprolol succinate 25 mg, Entresto. Echocardiogram showed Overall systolic function is mildly reduced. LVEF is 50-55%. RV is normal size and function. Elevated right heart pressures with an RVSP of 42 mmHg. ESRD on dialysis (M, W, F)Patient underwent dialysis on Saturday inpatient. Nephrology team was managing hypokalemia, hyperphosphatemia and anemia of chronic disease. Bibasilar opacity suspicious for community-acquired pneumonia, Empirically started with the patient on IV Rocephin , doxycycline in view of prolonged QT avoid azithromycin. Procalcitonin is elevated at 4.89. One time IV fluids at 50 cc/hour while monitoring for fluid overload. Breathing treatments were DuoNeb q.4h scheduled and albuterol q.2h p.r.n. patient was hemodynamically stable at the time of discharge. Physical exam at discharge: General: Alert, awake, oriented, not in acute distress , frail appearing woman HEENT: PERRLA, no icterus, pallor, lymphadenopathy, carotid bruit Respiratory system: Bilateral vesicular breath sounds heard, no adventitious breath sounds CVS: S1-S2 heard, grade 3/6 systolic ejection click murmur present in the aortic and pulmonary area with radiation to the mitral area GI: Soft, nontender, no organomegaly, no guarding/rigidity, bowel sounds present Neuro: No focal neurological deficits present Extremities: AV fistula in the right hand, no edema, cyanosis Skin: Warm and dry, flushing and dilated veins present in the collar region on the chest Vital Signs Date Time Temp Pulse Resp B/P (MAP) Pulse Ox O2 Delivery O2 Flow Rate FiO2 01/05/25 14:55 17 01/05/25 13:29 68 01/05/25 11:57 97 Room Air* 0 21 01/05/25 11:00 98.1 173/77 (109) Laboratory Tests Test 01/03/25 16:36 01/03/25 17:14 01/04/25 00:30 01/04/25 07:24 Troponin I High Sensitivity 212 ng/L Troponin I High Sens Percent Delta 17 % Troponin I Hi Sens Absolute Change -45 ng/L Blood Gas Specimen Type Arterial Blood Gas Puncture Site Lr O2 Saturation 99.3 % Arterial Blood pH (Temp corrected) 7.388 Arterial Blood pCO2 (Temp correct) 43.3 mmHg Arterial Blood pO2 (Temp corrected) 113.1 mmHg Arterial Blood PO2/FiO2 Ratio 4.04 mmHg/% Arterial Blood HCO3 25.5 mmol/L Arterial Blood Base Excess 0.3 mmol/L Arterial Blood Oxyhemoglobin 95.9 % Arterial Blood Carboxyhemoglobin 3.2 % Arterial Blood Methemoglobin 0.2 % Arterial Blood Deoxyhemoglobin 0.7 % Viraj Test Positive Blood Gas Hemoglobin 11.6 G/dl Blood Gas Temperature 37.0 Blood Gas Liter Flow 2 L/min Blood Gas Modality Nasal cannula FiO2 28.0 mmHg/% APTT (Heparin Protocol) 31 SECONDS 74 SECONDS Coagulation Comments White Blood Count 6.0 X10'3 Red Blood Count 3.68 X10'6 Hemoglobin 11.4 g/dl Hematocrit 35.6 % Mean Corpuscular Volume 96.7 FL Mean Corpuscular Hemoglobin 31.1 PG Mean Corpuscular Hemoglobin Concent 32.1 g/dL Red Cell Distribution Width 16.3 % Platelet Count 92 X10'3 Mean Platelet Volume 9.0 FL Neutrophils (%) (Auto) 83.8 % Lymphocytes (%) (Auto) 10.9 % Monocytes (%) (Auto) 5.1 % Eosinophils (%) (Auto) 0.1 % Basophils (%) (Auto) 0.1 % Neutrophils # (Auto) 5.1 X10'3 Lymphocytes # (Auto) 0.7 X10'3 Monocytes # (Auto) 0.3 X10'3 Eosinophils # (Auto) 0.0 X10'3 Basophils # (Auto) 0.0 X10'3 CBC Comment Sodium Level 134 MMOL/L Potassium Level 6.3 MMOL/L Chloride Level 94 MMOL/L Carbon Dioxide Level 24.2 MMOL/L Anion Gap 16 Blood Urea Nitrogen 66 MG/DL Creatinine 7.80 MG/DL Estimated GFR/1.73 m2 5 ML/MIN BUN/Creatinine Ratio 8.5 Glucose Level 111 MG/DL Calcium Level 9.2 MG/DL Magnesium Level 2.8 MG/DL Total Bilirubin 0.6 MG/DL Aspartate Amino Transf (AST/SGOT) 28 U/L Alanine Aminotransferase (ALT/SGPT) 18 U/L Alkaline Phosphatase 97 IU/L Total Protein 7.2 G/DL Albumin 3.5 G/DL Globulin 3.7 G/DL Albumin/Globulin Ratio 0.9 Chemistry Comments Test 01/04/25 08:41 9/29/25 15:03 01/04/25 21:03 01/05/25 08:54 Hepatitis B Surface Antigen Negative APTT (Heparin Protocol) 50 SECONDS 26 SECONDS Coagulation Comments Sodium Level 138 MMOL/L 136 MMOL/L Potassium Level 4.1 MMOL/L 5.1 MMOL/L Chloride Level 98 MMOL/L 96 MMOL/L Carbon Dioxide Level 30.3 MMOL/L 25.4 MMOL/L Anion Gap 10 15 Blood Urea Nitrogen 24 MG/DL 50 MG/DL Creatinine 4.59 MG/DL 6.12 MG/DL Estimated GFR/1.73 m2 10 ML/MIN 7 ML/MIN BUN/Creatinine Ratio 5.2 8.2 Glucose Level 155 MG/DL 136 MG/DL Calcium Level 9.0 MG/DL 9.6 MG/DL Phosphorus Level 3.9 MG/DL 6.0 MG/DL Albumin 3.2 G/DL 3.4 G/DL Chemistry Comments White Blood Count 5.8 X10'3 Red Blood Count 3.59 X10'6 Hemoglobin 11.2 g/dl Hematocrit 34.1 % Mean Corpuscular Volume 94.8 FL Mean Corpuscular Hemoglobin 31.0 PG Mean Corpuscular Hemoglobin Concent 32.7 g/dL Red Cell Distribution Width 15.9 % Platelet Count 105 X10'3 Mean Platelet Volume 8.5 FL Neutrophils (%) (Auto) 93.5 % Lymphocytes (%) (Auto) 5.5 % Monocytes (%) (Auto) 0.9 % Eosinophils (%) (Auto) 0 % Basophils (%) (Auto) 0.1 % Neutrophils # (Auto) 5.4 X10'3 Lymphocytes # (Auto) 0.3 X10'3 Monocytes # (Auto) 0.1 X10'3 Eosinophils # (Auto) 0.0 X10'3 Basophils # (Auto) 0.0 X10'3 CBC Comment Magnesium Level 2.4 MG/DL Total Bilirubin 0.5 MG/DL Aspartate Amino Transf (AST/SGOT) 22 U/L Alanine Aminotransferase (ALT/SGPT) 22 U/L Alkaline Phosphatase 87 IU/L Total Protein 7.0 G/DL Globulin 3.6 G/DL Albumin/Globulin Ratio 0.9 Imaging: Chest x-ray: Compared to previous exam faint bilateral infiltrates Echocardiogram: Normal LV size and wall thickness. Overall systolic function is mildly reduced. LVEF is 50-55%. RV is normal size and function. Elevated right heart pressures with an RVSP of 42 mmHg. The left atrium size is normal. Probable trileaflet AV appears moderately sclerotic with moderate stenosis. ORIN: 1.29 cmsq; Pkv: 303 cm/sec; Gradients: 37/20 mmHG. Mild insufficiency. Mild MV annular calcification without stenosis. Trace regurgitation. TV appears structurally normal with mild regurgitation. Normal pericardium. No effusion. Discharge recommendations: Follow up with your PCP, bench assembly inspector and home appliance tech in a week. Continue dialysis as scheduled and continue your heart medications as prescribed. Return to the ED if you have worsening shortness of breath or edema. *Problems/Diagnosis: (1) Elevated troponin Status: Acute (2) Dyspnea Status: Acute (3) Systemic lupus erythematosus Status: Acute (4) Kidney Injury, Acute Status: Acute (5) End-stage renal disease Status: Acute Total Time Spent on D/C: > 30 Minutes Date of Service: Jan 05, 2025 Billing Provider: COURTNEY YEH MD Common Visit Codes: 52836-DYE/OBS DISCH DAY >30min Problem Qualifiers (1) Dyspnea: Dyspnea type: orthopnea Qualified Codes: R06.01 - Orthopnea CARRINGTON ALBERTO, RES Jan 05, 2025 16:19 COURTNEY YEH MD Jan 05, 2025 17:57
== END 2025-01-05 17:12 | disposition home or self-care (01) | DRG 280 ==
LOC: ER 10:16 → ED HOLD 11:39 → PCU 3S 14:38
PROVIDERS: ADMIT Internal Medicine; ATTEND Internal Medicine
PROC: 5A1D70Z Performance of Urinary Filtration, Intermittent, Less than 6 Hours Per Day (ICD-10-PCS; principal; 2025-01-04)
DX: I13.2 Hypertensive heart and chronic kidney disease with heart failure and with stage 5 chronic kidney disease, or end stage renal disease (principal); I50.33 Acute on chronic diastolic (congestive) heart failure; I21.A1 Myocardial infarction type 2; J15.69 Pneumonia due to other Gram-negative bacteria; J96.01 Acute respiratory failure with hypoxia; N18.6 End stage renal disease; J15.9 Unspecified bacterial pneumonia; E87.1 Hypo-osmolality and hyponatremia; E87.20 Acidosis, unspecified; J45.909 Unspecified asthma, uncomplicated; E11.51 Type 2 diabetes mellitus with diabetic peripheral angiopathy without gangrene; D63.1 Anemia in chronic kidney disease; E87.5 Hyperkalemia; M06.9 Rheumatoid arthritis, unspecified; E83.39 Other disorders of phosphorus metabolism; F43.21 Adjustment disorder with depressed mood; F41.9 Anxiety disorder, unspecified; E11.22 Type 2 diabetes mellitus with diabetic chronic kidney disease; Z86.73 Personal history of transient ischemic attack (TIA), and cerebral infarction without residual deficits; Z99.2 Dependence on renal dialysis; Z88.0 Allergy status to penicillin; Z79.899 Other long term (current) drug therapy
CPT/HCPCS: 36415; 36600; 71045; 80048; 80053; 82803; 83605; 83735; 83880; 83970; 84100; 84145; 84484; 85018; 85025; 85610; 85651; 85730; 86140; 87040; 87081; 87340; 93005; 93306; 94664; 94668; 94760; 96365; 96375; 99291; A4615; A6213; A6449; E1594; G0257; G0378; J0360; J0696; J1271; J1644; J2003; J2919; J3490; J7040